=== PATIENT | female | born 1950 | race Caucasian/White ===

== ENCOUNTER 2017-02-10 10:21 | Day surgery (SDC) | payer MEDICARE, BC, OTHER ==
[~2017-02-10] VITALS: Ht 162.6 cm; Wt 85.3 kg
[2017-02-10] MEDS ORDERED: OMEP40CA2 PO (10:33)
[2017-02-10] MEDS ORDERED: CALC600T60 PO (10:33)
[2017-02-10] MEDS ORDERED: LOSA50TA20 PO (10:33)
[2017-02-10] MEDS ORDERED: POTA99TA PO (10:33)
[2017-02-10] MEDS ORDERED: CARI350T PO (10:33)
[2017-02-10] MEDS ORDERED: MIRA33504 PO (10:33)
[2017-02-10] MEDS ORDERED: TRAM1CAP15 PO (10:33)
[2017-02-10] MEDS ORDERED: GABA-283 PO (10:33)
[2017-02-10] MEDS ORDERED: AMIT10TA PO (10:33)
[2017-02-10] MEDS ORDERED: VITA250L PO (10:33)
[2017-02-10] MEDS ORDERED: NAPR220C PO (10:33)
[2017-02-10] MEDS ORDERED: ACETAMINOPHEN TAB 650MG DOSE (2X325MG) PO ONE (11:00)
--- NOTE | 2017-02-10 11:16 | REP ---
Left ankle four views: There is a spiral fracture of the distal fibular shaft. There is a transverse fracture at the base of the medial malleolus. The posterior malleolus is unremarkable. The mortise appears symmetric. Talar dome is unremarkable. There are calcaneal plantar and Achilles spurs. Spurs. Impression: Bimalleolar fracture. The mortise is symmetric. Signed by Wayne Gregory MD 02/10/2017 11:07 A
[2017-02-10] MEDS ORDERED: GABA600T PO (13:49)
[2017-02-10] MEDS ORDERED: VITA500T53 PO (13:49)
[2017-02-10] MEDS ORDERED: CALC600T57 PO (13:49)
[2017-02-10] MEDS ORDERED: GABA-282 PO (13:49)
[2017-02-10] MEDS ORDERED: NAPR1TAB86 PO (13:54)
[2017-02-10] MEDS ORDERED: VITA200038 PO (13:54)
[2017-02-10] MEDS ORDERED: OMEP20CA3 PO (13:54)
[2017-02-10] MEDS ORDERED: TRAM50TA2 PO (13:54)
[2017-02-10] MEDS ORDERED: HYDR12.55 PO (13:54)
[2017-02-10] MEDS ORDERED: PROL60SO SC (13:54)
[2017-02-10] MEDS ORDERED: STOO100C PO (13:54)
--- NOTE | 2017-02-10 15:18 | HPE ---
DATE OF ADMISSION: 02/10/2017 CHIEF COMPLAINT: Left ankle fracture. HISTORY OF PRESENT ILLNESS: Priya Kendall is a 66-year-old female with a history of mild chronic progressive amyotrophic lateral sclerosis who ambulates with a walker in the household at baseline, who sustained a mechanical fall from standing height, resulting in a left bimalleolar ankle fracture. She presented to the emergency department for evaluation. She denies any numbness, tingling, or burning sensations distally about her left lower extremity and has no other symptoms. Localizes pain to the left ankle. PAST MEDICAL HISTORY: Significant for: 1. Mild amyotrophic lateral sclerosis (ALS) per history of present illness (HPI). 2. Hypertension. 3. Gastroesophageal reflux disease (GERD). 4. Prediabetes. MEDICATIONS: - gabapentin 600 mg by mouth every morning, 900 mg by mouth at bedtime - amitriptyline 20 mg by mouth at bedtime - Naprosyn 500 mg by mouth twice a day - tramadol 50 mg by mouth three times a day - omeprazole 20 mg by mouth daily - losartan 50 mg by mouth at bedtime ALLERGIES: CODEINE, causing rash. PAST SURGICAL HISTORY: 1. Right knee arthroscopies in 1995 and 2012. 2. Ovarian cyst removal. 3. Vertebroplasty. SOCIAL HISTORY: Patient is a retired assistant corporate secretary. She currently lives with her brother and his . She does not smoke, drink, or use illicit drugs. REVIEW OF SYSTEMS: A 14-point review of systems was reviewed and remarkable for a history of neurologic disease per HPI and spinal stenosis. Otherwise unremarkable. PHYSICAL EXAMINATION: VITAL SIGNS: Reviewed and stable. GENERAL: This is a well-nourished female who appears stated age. No acute distress. NEUROLOGIC: She is awake, alert, oriented to person, place, and time. She has mild tongue fasciculations with no deviation. She has 5/5 motor strength, upper extremity, C5-T1 distributions. She has 4/5 motor strength in her hip flexors, quadriceps, hamstrings, ankle plantiflexors, dorsiflexors, inversion, and eversion. She has intact sensation to light tough in all left lower extremity distributions. CARDIOVASCULAR: She has 2+ dorsalis pedis (DP) and posterior tibialis (PT) pulse and brisk capillary refill at all digits of the left lower extremity. MUSCULOSKELETAL: Focused physical exam of the left ankle demonstrates no open wounds or abrasions. There is mild soft tissue swelling with left ankle. There is mild visible deformity about the left ankle. She is able to actively flex and extend all toes and dorsiflex, plantarflex, invert, and tiffany her left ankle. RADIOGRAPHS: Plain radiographs of the left ankle demonstrate a displaced bimalleolar ankle fracture with evidence of disuse osteopenia. ASSESSMENT: This is a 66-year-old female with mild progressive neurologic motor disease who has a left bimalleolar ankle fracture. PLAN: I had a very long discussion with the patient regarding the risks, benefits, indications, and alternatives of surgical versus nonsurgical treatment for her bimalleolar ankle fracture. Given that she ambulates only small distances in her house, and her life expectancy per patient's neurologist is around 5 years, I counseled the patient that posttraumatic arthritis is unlikely to be a significant contributing factor. If she developed a malunion however, she will likely require an extended period of casting to have the ankle heal, which may make hygiene and transfers more difficult, given that she is cared for by her brother and [id number]. It may also aid in her short-distance ambulation to have rigid internal fixation of her left ankle. After a discussion of the risks, benefits, indications, and alternative of surgical and nonsurgical treatment, the patient has elected to proceed with left ankle open reduction, internal fixation. I also counseled the patient that I will be her operation surgeon, but her followup will consulted by the [facility]. The patient expressed understanding of this arrangement, and informed consent was obtained for left ankle open reduction, internal fixation (ORIF). We will proceed to the operating room later today when her NPO time allows and will likely discharge in the morning. STEPHAN
[2017-02-10] MEDS ORDERED: LIDOCAINE 2% INJ 100 MG/5 ML SDV (FOR ANES.) As Ordered ONE (16:46)
[2017-02-10] MEDS ORDERED: PROPOFOL 200 MG/20 ML VIAL As Ordered ONE (16:46)
[2017-02-10] MEDS ORDERED: MIDAZOLAM INJ 2 MG/2 ML VIAL (J2250) As Ordered ONE (16:47)
[2017-02-10] MEDS ORDERED: fentaNYL 100 MCG/2 ML INJECTION (J3010) As Ordered ONE ×2 (16:47→18:50)
[2017-02-10] MEDS ORDERED: ceFAZolin 2 GM/D5W 50 ML IV BAG (J0690) As Ordered ONE (17:06)
[2017-02-10] MEDS ORDERED: BUPIVACAINE/EPIN 0.5% 30 ML VIAL As Ordered ONE (17:12)
[2017-02-10] MEDS ORDERED: PHENYLephrine HCL 500 MCG/5 ML (100MCG/ML) SYRINGE (J2370) As Ordered ONE ×2 (17:29→18:04)
[2017-02-10] MEDS ORDERED: MORPHINE 10 MG/ML 1ML VIAL As Ordered ONE (17:37)
[2017-02-10] MEDS ORDERED: ONDANSETRON 4MG/2ML VIAL (J2405) As Ordered ONE (17:39)
[2017-02-10] MEDS ORDERED: ePHEDrine SULFATE 25 MG/5 ML(5MG/ML) SYRINGE As Ordered ONE ×2 (17:51→18:05)
[2017-02-10] MEDS ORDERED: LR 1,000 ML IV SCH (19:15)
[2017-02-10] MEDS ORDERED: NORCO, ANEXSIA 5/325MG TABLET (HYDROcodone/ACETAMINOPHEN) PO PRN (19:15)
[2017-02-10] MEDS ORDERED: ONDANSETRON 4MG/2ML VIAL (J2405) IV PRN (19:15)
[2017-02-10] MEDS ORDERED: fentaNYL 100 MCG/2 ML INJECTION (J3010) IV PRN (19:15)
[2017-02-10] MEDS ORDERED: oxyCODONE 5MG TAB PO PRN (19:30)
[2017-02-10 19:45] VITALS: BP 125/61
[2017-02-10 20:15] VITALS: BP 137/65
[2017-02-10] MEDS: LOSARTAN 50 MG TAB PO SCH (21:05)
[2017-02-10] MEDS: GABAPENTIN 300 MG CAP PO SCH (21:05)
[2017-02-10] MEDS: traMADol 50 MG TAB PO PRN (21:06)
[2017-02-10 21:15] VITALS: BP 141/63
[2017-02-10] MEDS: NAPROXEN 250 MG TAB PO SCH (21:38)
[2017-02-10 22:15] VITALS: BP 146/82
[2017-02-10 23:15] VITALS: BP 142/80
[2017-02-11 02:00] VITALS: BP 138/72
[2017-02-11 06:00] VITALS: BP 101/54
[2017-02-11] MEDS: GABAPENTIN 300 MG CAP PO SCH ×2 (08:50→20:28)
[2017-02-11] MEDS: ASPIRIN 325 MG TAB PO SCH (08:50)
[2017-02-11] MEDS: NAPROXEN 250 MG TAB PO SCH ×2 (08:50→20:31)
[2017-02-11] MEDS: traMADol 50 MG TAB PO PRN ×2 (08:54→20:29)
--- NOTE | 2017-02-11 09:00 | REP ---
Left ankle intraoperative fluoroscopic views: There is a compression plate stabilizing a fracture of the distal fibula in satisfactory position alignment. There are orthopedic screws stabilizing the medial malleolus in satisfactory position alignment. The mortise is symmetric. Posterior malleolus is unremarkable. Fluoroscopic poor exposure time is 46 seconds. Fluoroscopic images are performed with last image hold technology. These images require no additional radiation. Signed by Wayne Gregory MD 02/11/2017 08:51 A
--- NOTE | 2017-02-11 09:02 | REP ---
Left ankle three views postoperative study: There is a compression plate stabilizing the fracture of the distal fibula in satisfactory position alignment. There are two of orthopedic screw stabilizing the medial malleolus in satisfactory position alignment. The mortise is symmetric. Posterior malleolus is unremarkable. There are a calcaneal plantar and Achilles spurs. There is a plaster cast. Signed by Wayne Gregory MD 02/11/2017 08:52 A
[2017-02-11] MEDS ORDERED: traMADol 50 MG TAB PO ONE (11:00)
--- NOTE | 2017-02-11 14:48 | RO ---
DATE OF PROCEDURE: 02/10/2017 PREPROCEDURE DIAGNOSIS: Left ankle fracture. POSTPROCEDURE DIAGNOSIS: Left ankle fracture. OPERATIVE PROCEDURE: Left ankle open reduction, internal fixation (ORIF) with bimalleolar ankle fracture. SURGEON: Casimiro Fonseca MD ROOFING APPRENTICE: LAST Rangel ANESTHESIA PROVIDER: Dr. Keenan. ANTIBIOTICS: 2 gram Ancef given within one hour of incision. TOTAL TOURNIQUET TIME: 65 minutes, 250 mmHg, left thigh. IMPLANTS USED: Synthes 7-hole 2.7/3.5 mm distal fibular locking plate with four 12 mm x 3.5 mm locking screws. One 16 mm x 2.7 mm locking screw, two 14 mm x 2.7 mm locking screws, two 12 mm x 2.7 mm locking screws, one 46 mm x 4 mm partially threaded cannulated cancellus screw, and one 50 mm x 4 mm partially threaded cannulated cancellus screw. MATERIAL SENT TO THE LAB: None. COMPLICATIONS: None. INDICATION FOR PROCEDURE: Priya Kendall is a 66-year-old female with history of mild version of amyotrophic lateral sclerosis (ALS) where she has baseline weakness in her lower extremities. She ambulates in the household only with a walker. 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 Given her limited mobility I had a long discussion with the patient regarding the risks, benefits, indications and alternatives of operative and nonoperative treatment for her left bimalleolar ankle fracture. After discussion, we decided that operative treatment may allow for some earlier range of motion and may ease personal hygiene and transfers for her and her brother who is her caregiver. This patient provided informed consent for left ankle open reduction, internal fixation. I also counseled the patient that I will be her operating surgeon, but her followup will be conducted by [facility]. The patient expressed understanding with this arrangement and elected to proceed. INTRAOPERATIVE FINDINGS: There was significant comminution in the anterior aspect of the fibular fracture, therefore, a bridge-plating technique was used for the fibula. The syndesmosis was stable after fixation of the bimalleolar fracture. DESCRIPTION OF PROCEDURE: The patient was positively identified in the preop holding area where the surgical was marked. She was brought to the operating room where she was placed under laryngeal mask airway (LMA) anesthesia. Sequential compression device (SCD) was placed on the nonoperative lower extremity for deep venous thrombosis (DVT) prophylaxis. She was prepped and draped in the usual sterile fashion. A final time out was performed. I made a 12 cm incision directly lateral over the fibula. I dissected through skin and subcutaneous tissue. The superficial peroneal nerve was identified at the very proximal portion of the wound, which was out of the field. It was retracted anteriorly and protected throughout the remainder of the case. I then dissected down onto the fracture site, identified the fibular fracture and anterior comminution. At this point, I determined that a bridge-plating technique would be most appropriate for this fracture pattern. I then placed the distal fibular locking plate on the lateral malleolus using fluoroscopic guidance and then I used the plate as a reduction tool to obtain adequate length and rotation of the distal fibula. There was a small spike of bone posteriorly that allowed for adequate read on length. After obtaining adequate length, I placed a serrated clamp on the proximal portion of the fibula and the plate to hold it in place and then placed a single 3.5 mm cortex screw to hold the plate in place. I obtained fluoroscopic images to confirm adequate placement on AP and lateral and then proceeded to sequentially place 2.7 mm locking screws in the distal portion of the plate followed by four 3.5 mm locking screws in the proximal portion of the plate. Cortical screws were switched out for locking screws and then took fluoroscopic images to confirm adequate hardware placement and reduction of the fibula. I then turned my attention to the medial malleolus. A 3 cm incision was made centered over the medial malleolus and dissected through skin and subcutaneous tissue and identified the medial malleolar fracture. There was some periosteum interposed which was excised. The fracture was irrigated. I visualized the ankle joint. There were no loose bodies in the ankle joint. I then obtained an open reduction using dental pick tool of the medial malleolus. I placed two K-wires for the cannulated screws. I confirmed on fluoroscopy that there was adequate placement of the wires. I measured them and sequentially placed the anterior and posterior 4 mm cannulated screws. I confirmed on lateral and mortise images that there was no intraarticular penetration of the medial malleolar screws. I then performed a cotton test to evaluate the stability of the syndesmosis. It was noted to be stable. At this point, the wounds were then irrigated with normal saline and closed in layers. The fibular wound was closed with running #0 Vicryl for the periosteal layer, interrupted #2-0 Vicryl for the subcutaneous layer and a running #3-0 nylon for the skin. The medial side of the wound was closed with interrupted #2-0 Vicryl suture for the subcutaneous layer and interrupted #3-0 nylon horizontal fashion for the skin. Sterile dressings were applied. The tourniquet was let down, a total of 75 minutes. This ended the procedure. I was present and scrubbed in for all critical portions of the case. POSTOPERATIVE PLAN: The patient will be placed in a well-padded L and U splint. She will be nonweightbearing. She will be admitted to the hospital overnight for observation, elevation and pain control and likely be discharged to home tomorrow morning. STEPHAN
--- NOTE | 2017-02-11 19:26 | ECGEPIP ---
Stationary ECG Study [facility] - ED Test Date: 2017-02-10 Pat Name: ELICEO MATHEW Department: Room: - Gender: F Automotive Porter: bautista : 1950 Requested By: Arvind Javier Order Number: [id number] Reading MD: Marielena Coleman Measurements Intervals [place] Rate: 68 P: -1 UT: 194 QRS: 1 QRSD: 87 T: 7 QT: 365 QTc: 389 Interpretive Statements SINUS RHYTHM NONSPECIFIC T-WAVE ABNORMALITY INFERIOR INFARCT, ?AGE NO PRIOR FOR COMPARISON Electronically Signed On 02-11-2017 19:25:54 EDT by Marielena Coleman
[2017-02-11 20:28] VITALS: BP 150/85
[2017-02-11] MEDS: LOSARTAN 50 MG TAB PO SCH (20:28)
[2017-02-11 22:00] VITALS: BP 150/85
[2017-02-12] MEDS: traMADol 50 MG TAB PO PRN (05:39)
[2017-02-12 06:00] VITALS: BP 103/61
[2017-02-12] MEDS: GABAPENTIN 300 MG CAP PO SCH (08:07)
[2017-02-12] MEDS: ASPIRIN 325 MG TAB PO SCH (08:07)
[2017-02-12] MEDS: NAPROXEN 250 MG TAB PO SCH (08:08)
[2017-02-12] MEDS ORDERED: TRAM50TA2 PO (08:14)
[2017-02-12] MEDS ORDERED: ASPI325T PO (08:14)
== END 2017-02-12 11:20 | disposition home or self-care (01) ==
LOC: M ED 10:40 → M SDC 13:30 → M MS5PR 19:40 → M SDC 02-12 11:20
PROVIDERS: ATTEND Orthopaedic Surgery
DX: S82.842A Displaced bimalleolar fracture of left lower leg, initial encounter for closed fracture (principal); M85.872 Other specified disorders of bone density and structure, left ankle and foot; W19.XXXA Unspecified fall, initial encounter; Y92.009 Unspecified place in unspecified non-institutional (private) residence as the place of occurrence of the external cause; Y93.01 Activity, walking, marching and hiking; Y99.8 Other external cause status; G12.21 Amyotrophic lateral sclerosis; I10 Essential (primary) hypertension; K21.9 Gastro-esophageal reflux disease without esophagitis; R73.03 Prediabetes; M48.00 Spinal stenosis, site unspecified; Z79.899 Other long term (current) drug therapy; Z79.1 Long term (current) use of non-steroidal anti-inflammatories (NSAID); Z79.891 Long term (current) use of opiate analgesic; Z88.5 Allergy status to narcotic agent
CPT/HCPCS: 27814; 73610; 93005; 97162; 97530; 99284; C1776; G8981; G8982; G8983; J0690; J2250; J2370; J2405; J3010

== ENCOUNTER → 2017-03-23 | Outpatient (REF) | payer MEDICARE, OTHER ==
[~2017-03-23] MED LIST: AMIT10TA PO; ASPI325T PO; CALC600T57 PO; CALC600T60 PO; CARI350T PO; GABA-282 PO; GABA-283 PO; GABA600T PO; HYDR12.55 PO; LOSA50TA20 PO; MIRA33504 PO; NAPR1TAB86 PO; NAPR220C PO; OMEP20CA3 PO; OMEP40CA2 PO; POTA99TA PO; PROL60SO SC; STOO100C PO; TRAM1CAP15 PO; TRAM50TA2 PO; VITA200038 PO; VITA250L PO; VITA500T53 PO
== END ==
LOC: M LAB REF 13:16
PROVIDERS: ATTEND Internal Medicine
DX: N39.0 Urinary tract infection, site not specified (principal)

== ENCOUNTER → 2017-04-03 | Outpatient (REF) | payer MEDICARE, OTHER | LOC: M LAB REF 16:17 | PROVIDERS: ATTEND Internal Medicine | DX: N76.0 Acute vaginitis (principal) ==

== ENCOUNTER → 2017-07-16 | Outpatient (CLI) | payer MEDICARE, BC, OTHER ==
[2017-07-16 10:48] LABS: ALBUMIN/GLOBULIN RATIO 1.29 (1.00-1.93); ALKALINE PHOSPHATASE 70 U/L (45-117); ALT/SGPT 22 U/L (12-78); ANION GAP 6 MEQ/L (8-16); AST/SGOT 10 U/L (7-37); BILIRUBIN,TOTAL 0.7 MG/DL (0.2-1.0); BLOOD UREA NITROGEN 14 MG/DL (7-18); CALCIUM LEVEL 9.4 MG/DL (8.8-10.2); CARBON DIOXIDE LEVEL 33 MEQ/L (21-32); CHLORIDE LEVEL 101 MEQ/L (98-107); CREATININE FOR GFR 0.66 MG/DL (0.55-1.02); GLOMERULAR FILTRATION RATE > 60.0 (>45); GLUCOSE, FASTING 173 MG/DL (80-110); SODIUM LEVEL 140 MEQ/L (136-145); TOTAL PROTEIN 7.1 GM/DL (6.4-8.2)
== END ==
LOC: M LAB 09:40
PROVIDERS: ATTEND Urology Pediatric Urology
DX: G12.21 Amyotrophic lateral sclerosis (principal)

== ENCOUNTER → 2017-07-17 | Outpatient (CLI) | payer MEDICARE, BC, OTHER ==
[~2017-07-17] MED LIST changes: +PROHANCE 279.3MG/ML 15ML VIAL (A9576) As Ordered ONE
--- NOTE | 2017-07-17 13:07 | REP ---
MR BRAIN WITHOUT AND WITH CONTRAST: HISTORY: ALS. CONTRAST: ProHance 14 mL. Several punctate areas of increased signal intensity on T2-weighted images are present in the subcortical white matter. This represents small vessel ischemic disease. There is no intraparenchymal hemorrhage, infarct, mass or midline shift. There is no abnormal enhancement. The ventricular system and cortical sulci are dilated consistent with minimal volume loss. There is no extracerebral collection. The sinuses are clear. IMPRESSION: 1. Minimal small vessel ischemic disease. 2. Minimal volume loss. Signed by Andreas Tom MD 07/17/2017 01:15 P
== END ==
LOC: M RAD 09:42
PROVIDERS: ATTEND Psychiatry & Neurology Neurology
DX: G12.21 Amyotrophic lateral sclerosis (principal)
CPT/HCPCS: 70553; A9576

== ENCOUNTER 2019-04-03 18:18 | Inpatient (IN) | payer MEDICARE, BC, OTHER ==
[~2019-04-03] VITALS: Ht 162.6 cm; Wt 91.3 kg
[~2019-04-03 18:18] MED LIST changes: +ASPI-1 PO; -ASPI325T PO; +CARI1TAB7 PO; -CARI350T PO; -GABA-282 PO; -GABA-283 PO; +GABA-843 PO; +GABA-845 PO; -GABA600T PO; +GABA600T4 PO; -LOSA50TA20 PO; +LOSA50TA88 PO; +MM S100C PO; -OMEP20CA3 PO; +OMEP20CA4 PO; -PROHANCE 279.3MG/ML 15ML VIAL (A9576) As Ordered ONE; -STOO100C PO; +VITA500T17 PO; -VITA500T53 PO
[2019-04-03] MEDS ORDERED: GLIP5TAB20 PO (18:30)
[2019-04-03] MEDS ORDERED: METF500T4 PO (18:30)
--- NOTE | 2019-04-03 19:46 | REPVR ---
EXAM: CT Head Without Contrast EXAM DATE/TIME: 04/03/2019 7:38 PM CLINICAL HISTORY: 68 years old, female; Visual disturbance; Additional info: Visual changes, HTN TECHNIQUE: Imaging protocol: Computed tomography images of the head without contrast. Radiation optimization: All CT scans at this facility use at least one of these dose optimization techniques: automated exposure control; mA and/or kV adjustment per patient size (includes targeted exams where dose is matched to clinical indication); or iterative reconstruction. Other technique: STROKE PROTOCOL was implemented. COMPARISON: No relevant prior studies available. FINDINGS: Brain: No intracranial hemorrhage. No evidence of acute infarction. Mild diffuse cortical volume loss. Patchy white matter hypodensities consistent with chronic small vessel ischemic changes. Ventricles: No hydrocephalus. Bones/joints: Unremarkable. No acute fracture. Sinuses: Visualized sinuses are unremarkable. No fluid levels. Mastoid air cells: No mastoid effusion. Soft tissues: Unremarkable. IMPRESSION: 1. No acute intracranial abnormality. 2. Nonacute/incidental findings above. ASSESSMENT: [facility] Stroke Program Early CT Score (ASPECTS) = 10. Electronically signed by: Germain Linares On 04/03/2019 19:46:17 PM
[2019-04-03] MEDS ORDERED: TROPICAMIDE 1% OPHTH SOLN 2ML OU ONE (20:45)
[2019-04-03] MEDS ORDERED: PHENYLEPHRINE 2.5% OPHTH SOL 2ML OU ONE (20:45)
[2019-04-03] MEDS: HumaLOG INSULIN (NovoLOG) PER UNIT SC SCH (21:00)
[2019-04-03 21:04] LABS: BASO # 0.1 10^3/uL (0.0-0.2); BASO % 0.6 % (0.0-1.0); EOS # 0.2 10^3/uL (0.0-0.50); HEMATOCRIT 39.3 % (36.0-47.0); HEMOGLOBIN 12.9 g/dl (12.0-15.5); LYMPH # 2.5 10^3/uL (1.5-4.5); LYMPH % 30.7 % (24.0-44.0); MEAN CORPUSCULAR HEMOGLOBIN 29.6 pg (27.0-33.0); MEAN CORPUSCULAR HGB CONC 32.8 g/dl (32.0-36.5); MEAN CORPUSCULAR VOLUME 90.1 fl (80.0-96.0); MONO # 0.6 10^3/uL (0.0-0.8); MONO % 7.6 % (0.0-5.0); NEUTROPHILS # 4.7 10^3/uL (1.8-7.7); NEUTROPHILS % 58.7 % (36.0-66.0); PLATELET COUNT, AUTOMATED 277 10^3/uL (150-450); RED BLOOD COUNT 4.36 10^6/uL (4.00-5.40); WHITE BLOOD COUNT 8.1 10^3/uL (4.0-10.0)
[2019-04-03 21:18] LABS: PROTHROMBIN TIME 12.9 SECONDS (11.8-14.0)
[2019-04-03 21:19] LABS: PARTIAL THROMBOPLASTIN TIME 25.9 SECONDS (25.0-38.4)
[2019-04-03 21:42] LABS: BLOOD UREA NITROGEN 13 MG/DL (7-18); CALCIUM LEVEL 9.1 MG/DL (8.8-10.2); CARBON DIOXIDE LEVEL 29 MEQ/L (21-32); CHLORIDE LEVEL 101 MEQ/L (98-107); CPK CREATINE PHOSPHOKINASE 130 U/L (26-192); CREATININE FOR GFR 1.02 MG/DL (0.55-1.30); GLUCOSE, FASTING 221 MG/DL (70-100); MB/CK RELATIVE INDEX 1.54 (< OR =4); SODIUM LEVEL 141 MEQ/L (136-145); TROPONIN I < 0.02 NG/ML (< 0.10)
[2019-04-03] MEDS ORDERED: LABETALOL HCL 100 MG/20 ML VIAL IV STA (21:56)
[2019-04-03] MEDS ORDERED: AMIT50TA PO (22:33)
[2019-04-03] MEDS ORDERED: HM V5000 PO (22:33)
[2019-04-03] MEDS ORDERED: GABA-843 PO (22:35)
[2019-04-03] MEDS ORDERED: CHLO25TA PO (22:39)
[2019-04-03] MEDS ORDERED: HYDR25TAB PO (22:39)
[2019-04-03] MEDS ORDERED: GLUCOSE 4 GM CHEW TABLET PO PRN (22:45)
[2019-04-03] MEDS ORDERED: MOM 30ML SUSPENSION UDC PO PRN (22:45)
[2019-04-03] MEDS ORDERED: GLUCAGON FOR INJ 1 MG VIAL (J1610) SC PRN (22:45)
[2019-04-03] MEDS ORDERED: DEXTROSE 50% 50 ML SYRINGE IV PRN (22:45)
[2019-04-03] MEDS ORDERED: MAALOX 30 ML SUSP *UDC PO PRN (22:45)
[2019-04-03] MEDS ORDERED: TRAM50TA2 PO ×2 (22:47)
[2019-04-03] MEDS ORDERED: POTA2.5T PO (22:47)
[2019-04-03] MEDS ORDERED: MAGN400T2 PO (22:47)
[2019-04-03] MEDS ORDERED: TRAM-533 PO (22:47)
[2019-04-03] MEDS ORDERED: traMADol 50 MG TAB PO PRN (23:15)
[2019-04-03] MEDS ORDERED: ASPIRIN 81 MG CHEW TABLET PO ONE (23:30)
[2019-04-03] MEDS ORDERED: ATORVASTATIN 20 MG TAB PO ONE (23:30)
--- NOTE | 2019-04-03 23:38 | HPEPDOC ---
General Date of Admission 04/03/19 Date of Service: Apr 03, 2019 Chief Complaint The patient is a 68-year-old female admitted with a reason for visit of Eye Problem. Source: Patient, Family, RN/MD Exam Limitations: No limitations Severity: Moderate History of Present Illness 68 year old female with PMH of ALS since 2014 wheel chair bound, diabetes, hypertension, Neuropathy, chronic pain and muscle spasms from ALS and neuropathy, restless legs present to the ED with sudden loss of vision in the left eye. pateint was transferring from wheel chair to bed today at 5 pm when she suddenly could not see in the upper part of the left visual field. SHe describes as if suddenly a white curtain came down covering left eye the upper p art of the visual field. She could see through the lower part. She immediately came to the ED and was seen by lead quality technician Dr Ho . 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 as per him nothing to be done for the eyes but she needs work up for TIA/Stroke. Pateint was admitted to the hospitalist service for TIA/ stroke. On my interview patient says that her vision is coming back she can partially see through the upper field. The complete loss of vision in that area lasted about 4.5 hours now mostly improved. She probably has a TIA affecting the inferior retinal artery. She did not have any associated heache or pain in the eyes. Home Medications Scheduled Amitriptyline HCl (Amitriptyline HCl) 50 Mg Tablet, 50 MG PO QHS, (Reported) Calcium Carbonate/Vitamin D3 (Calcium 600-Vit D3 200 Tablet) 1 Tab Tab, 1 TAB PO BID, (Reported) Chlorthalidone (Chlorthalidone) 25 Mg Tablet, 25 MG PO DAILY, (Reported) NEW RX, HAS NOT STARTED. WILL REPLACE HCTZ. Cholecalciferol (Vitamin D3) (Vitamin D3) 2,000 Unit Tab, 2,000 UNIT PO DAILY, (Reported) Cyanocobalamin (Vitamin B-12) (Vitamin B12) 5,000 Mcg Tab.rapdis, 5,000 MCG PO QHS, (Reported) Denosumab Injection (Prolia) 60 Mg/Ml Vijaya, 60 MG SC ASDIRECTED, (Reported) Gabapentin (Gabapentin) 300 Mg Cap, 300 MG PO QPM, (Reported) TAKES AT 1700 Gabapentin (Gabapentin) 300 Mg Capsule, 600 MG PO BID, (Reported) TAKES AT 0830 AND 2100 Glipizide (Glipizide ER) 5 Mg Tab.er.24, 5 MG PO DAILY, (Reported) Hydrochlorothiazide (Hydrochlorothiazide) 25 Mg Tablet, 25 MG PO DAILY, (Reported) Losartan Potassium (Losartan Potassium) 50 Mg Tab, 50 MG PO QHS, (Reported) Magnesium Oxide (Magnesium Oxide) 400 Mg Tablet, 400 MG PO DAILY, (Reported) Metformin HCl (Metformin HCl ER) 500 Mg Tab.er.24h, 500 MG PO BID, (Reported) TAKES AT 0830 AND 1700 Naproxen Sodium (Naproxen Sodium ER) 500 Mg Tab, 500 MG PO BID, (Reported) TAKES AT 0830 AND 1700 Omeprazole (Omeprazole) 20 Mg Cap, 20 MG PO DAILY, (Reported) Potassium Gluconate (Potassium Gluconate) 90 Mg Tablet, 99 MG PO DAILY, (Reported) Tramadol HCl (Tramadol HCl) 50 Mg Tablet, 50 MG PO BID, (Reported) TAKES AT 0830 AND 1700 Tramadol HCl (Tramadol Hydrochloride) 50 Mg Tablet, 100 MG PO QHS, (Reported) Scheduled PRN Docusate Sodium (Stool Softener) 100 Mg Cap, 100 MG PO QPM PRN for CONSTIPATION, (Reported) Tramadol HCl (Tramadol HCl) 50 Mg Tablet, 50 MG PO DAILY PRN for PAIN, (Reported) TAKES PRN AT 1200 Allergies Coded Allergies: codeine (Verified Allergy, Unknown, 04/03/19) Past Medical History Medical History ALS since 2014 wheel chair bound, diabetes, hypertension, Neuropathy, chronic pain and muscle spasms from ALS and neuropathy, restless legs Surgical History Left Ankle surgery for fibula and tibia fracture, Lasik for eyes, ovarian cyst surgery Family History Significant Family History: Diabetes (fathr), Hypertension (father) Social History * Smoker: Denies Alcohol: Denies Drugs: denies A-FIB/CHADSVASC A-FIB History Current/History of A-Fib/PAF?: No Review of Systems Constitutional: Denies: Chills, Fever, Night Sweats Eyes: Reports: Vision change (sudden loss of vision in the left eye upper viual field at 5 pm) ENT: Denies: Head Aches, Ear Pain, Dysphagia Skin: Denies: Rash, Lesions, Breakdown Pulmonary: Denies: Dyspnea, Cough Cardiovascular: Denies: Chest Pain, Palpitations, Orthopnea, Paroxysmal Noc. Dyspnea, Lt Headedness Gastrointestinal: Denies: Nausea, Vomiting, Abdominal Pain, Diarrhea Genitourinary: Denies: Dysuria, Frequency, Incontinence, Retention Musculoskeletal: Reports: Back Pain, Leg Pain, Muscle Pain, Spasms Neurological: Reports: Weakness (of both legs) Psych: Reports: Mood Normal; Denies: Depression, Memory Issues Physical Examination General Exam: Positive: Alert, Cooperative, No Acute Distress Eye Exam: Positive: Conjunctiva & lids normal, EOMI, Other Eye Symptoms (pupils dilated to 5 mm non reactive as just recieved dilators) ENT Exam: Positive: Atraumatic, Mucous membr. moist/pink, Pharynx Normal Neck Exam: Positive: Supple; Negative: JVD, thyromegaly Chest Exam: Positive: Clear to auscultation, Normal air movement Heart Exam: Positive: Rate Normal, Regular Rhythm, Normal S1, Normal S2; Negative: Murmurs, Rubs Telemetry: Positive: No significant arrhythmia Abdomen Exam: Positive: Normal bowel sounds, Soft; Negative: Tenderness, Hepatospenomegaly Extremity Exam: Positive: Edema, Other (erythema of the bottom of both feet and warmth.) Neuro Exam: Positive: Normal Speech, Other Psych Exam: Positive: Mental status NL, Mood NL, Oriented x 3 Vital Signs Vital Signs Date Time Temp Pulse Resp B/P (MAP) Pulse Ox O2 Delivery O2 Flow Rate FiO2 04/03/19 22:48 80 94 04/03/19 22:45 151/73 (99) 04/03/19 19:30 99.6 20 Room Air Laboratory Data Labs 24H Laboratory Tests 2 04/03/19 20:50: Bedside Glucose (Misc Panel) 226H 04/03/19 20:55: Immature Granulocyte % (Auto) 0.4, White Blood Count 8.1, Red Blood Count 4.36, Hemoglobin 12.9, Hematocrit 39.3, Mean Corpuscular Volume 90.1, Mean Corpuscular Hemoglobin 29.6, Mean Corpuscular Hemoglobin Concent 32.8, Red Cell Distribution Width 14.0, Platelet Count 277, Neutrophils (%) (Auto) 58.7, Lymphocytes (%) (Auto) 30.7, Monocytes (%) (Auto) 7.6H, Eosinophils (%) (Auto) 2.0, Basophils (%) (Auto) 0.6, Neutrophils # (Auto) 4.7, Lymphocytes # (Auto) 2.5, Monocytes # (Auto) 0.6, Eosinophils # (Auto) 0.2, Basophils # (Auto) 0.1, Nucleated Red Blood Cells % (auto) 0.0, Prothrombin Time 12.9, Prothromb Time International Ratio 1.00, Activated Partial Thromboplast Time 25.9, Anion Gap 11, Glomerular Filtration Rate 57.0, Blood Urea Nitrogen 13, Creatinine 1.02, Sodium Level 141, Potassium Level 4.0, Chloride Level 101, Carbon Dioxide Level 29, Calcium Level 9.1, Total Creatine Kinase 130, Creatine Kinase MB 2.0, Creatine Kinase MB Relative Index 1.54, Troponin I < 0.02 CBC/BMP Laboratory Tests 04/03/19 20:55 Red Blood Count 4.36, Mean Corpuscular Volume 90.1, Mean Corpuscular Hemoglobin 29.6, Mean Corpuscular Hemoglobin Concent 32.8, Red Cell Distribution Width 14.0, Neutrophils (%) (Auto) 58.7, Lymphocytes (%) (Auto) 30.7, Monocytes (%) (Auto) 7.6 H, Eosinophils (%) (Auto) 2.0, Basophils (%) (Auto) 0.6, Neutrophils # (Auto) 4.7, Lymphocytes # (Auto) 2.5, Monocytes # (Auto) 0.6, Eosinophils # (Auto) 0.2, Basophils # (Auto) 0.1, Calcium Level 9.1, Total Creatine Kinase 130 Assessment/Plan 68 year old female with PMH of ALS since 2014 wheel chair bound, diabetes, hypertension, Neuropathy, chronic pain and muscle spasms from ALS and neuropathy, restless legs present to the ED with sudden loss of vision in the left eye. pateint was transferring from wheel chair to bed today at 5 pm when s he suddenly could not see in the upper part of the left visual field. SHe describes as if suddenly a white curtain came down covering left eye the upper part of the visual field. She could see through the lower part. She immediately came to the ED and was seen by lead quality technician Dr Ho . 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 as per him nothing to be done for the eyes but she needs work up for TIA/Stroke. Pateint was admitted to the hospitalist service for TIA/ stroke. TIA/Stroke Probably Embolic in nature in the left inferior retinal artery distribution area vision is still improving. CT head negative. will get MRI and MRA of brain, Carotid US, Echo. admit to Telemetry for any cardiac arrhythmia Allow. permissive hypertension with SBp in 150 to 160 range Diabetes with neuropathy will hold metformin, continue glipizide will add lispro AC and HS as per sliding scale continue elavil, gabapentin, tramadol Hypertension continue losartan and diuretics as needed Bipedal edema with erythema of the bottom of the feet as per her they get cyanotic when they are hanging down for a while probably has venous insufficiency and problem with venous return. May also have underlying PAD. consider consulting vascular ALS with Paraplegia chronic pain and muscle spasms. continue elavil, tramadol, gabapentin WC bound. Plan / VTE VTE Prophylaxis Ordered?: Yes LUIS CURRAN MD Apr 03, 2019 23:38
[2019-04-04] VITALS (9 sets, daily range): BP systolic 121–152; BP diastolic 63–93
--- NOTE | 2019-04-04 00:40 | REPVR ---
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 ; Additional Info: acute stroke TECHNIQUE: Imaging protocol: MR angiogram head without contrast. Exam focused on the arteries. 3D rendering: MIP reconstructed images were created and reviewed. COMPARISON: CT Head Stroke Protocol 04/03/2019 7:36 PM FINDINGS: Right internal carotid artery: Unremarkable. Intracranial segment is patent with no significant stenosis. No aneurysm. Right anterior cerebral artery: Unremarkable. No occlusion or significant stenosis. No aneurysm. Right middle cerebral artery: Unremarkable. No occlusion or significant stenosis. No aneurysm. Right posterior cerebral artery: Unremarkable. No occlusion or significant stenosis. No aneurysm. Right vertebral artery: Right vertebral artery is hypoplastic. Left internal carotid artery: Unremarkable. Intracranial segment is patent with no significant stenosis. No aneurysm. Left anterior cerebral artery: Unremarkable. No occlusion or significant stenosis. No aneurysm. Left middle cerebral artery: Unremarkable. No occlusion or significant stenosis. No aneurysm. Left posterior cerebral artery: Unremarkable. No occlusion or significant stenosis. No aneurysm. Left vertebral artery: Unremarkable. No occlusion or significant stenosis. No aneurysm. Basilar artery: Unremarkable. No occlusion or significant stenosis. No aneurysm. IMPRESSION: No large vessel arterial occlusion. Electronically signed by: Clinton Hobson On 04/04/2019 00:40:20 AM
--- NOTE | 2019-04-04 00:41 | REPVR ---
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 ; Additional Info: acute stroke TECHNIQUE: Imaging protocol: MR of the head without contrast. COMPARISON: CT Head Stroke Protocol 04/03/2019 7:36 PM FINDINGS: Brain: No acute infarct. There are no abnormal white matter changes. Diffuse cerebral atrophy consistent with patient's age. No acute edema. No acute intracranial hemorrhage. Ventricles: Ventricles are in proportion to the degree of atrophy. Bones/joints: Unremarkable. Soft tissues: Normal. Sinuses: Normal as visualized. No acute sinusitis. Mastoid air cells: Normal as visualized. No mastoid effusion. Orbits: Unremarkable. Other vasculature: Right vertebral artery is hypoplastic. Expected flow voids in the cerebral arteries otherwise. IMPRESSION: No acute infarct. Electronically signed by: Clinton Hobson On 04/04/2019 00:40:37 AM
--- NOTE | 2019-04-04 00:44 | REPVR ---
EXAM: US Duplex Bilateral Extracranial Arteries EXAM DATE/TIME: 04/03/2019 11:25 PM CLINICAL HISTORY: 68 years old, female; Dizziness; Additional Info: stroke TECHNIQUE: Imaging protocol: Real-time Duplex ultrasound scan of the Bilateral carotid and vertebral arteries combining alvarez scale, color Doppler and spectral waveform analysis. COMPARISON: CT Head Stroke Protocol 04/03/2019 7:36 PM FINDINGS: Right common carotid artery: Unremarkable. No occlusion or stenosis. Waveforms are normal. Peak systolic velocity is 95 cm/s. Right internal carotid artery: Unremarkable. No occlusion or stenosis. Waveforms are normal. Peak systolic velocity is 79 cm/s. Moderate echogenic plaque in the right carotid bulb. Right ICA/CCA ratio: Within normal limits. Ratio is 0.83. Right external carotid artery: No stenosis in the origin. Right vertebral artery: Unremarkable. Antegrade flow Left common carotid artery: Unremarkable. No occlusion or stenosis. Waveforms are normal. Peak systolic velocity is 125 cm/s. Left internal carotid artery: Unremarkable. No occlusion or stenosis. Waveforms are normal. The systolic velocity is 74 cm/s. Mild plaque in the right carotid bulb. Left ICA/CCA ratio: Within normal limits. Ratio is 0.60. Left external carotid artery: No stenosis in the origin. Left vertebral artery: Left vertebral artery is not seen. IMPRESSION: 1. No carotid artery stenosis. 2. Left vertebral artery is not seen. COMMENT: Carotid Stenosis Reference using SRU criteria: Mild: less than 50% stenosis. ICA PSV is less than 125 cm/second and plaque or intimal thickening is visible. Moderate: 50-69% stenosis. ICA PSV is 125 to 230 cm/second and plaque is visible. Severe: 70-94% stenosis. ICA PSV is more than 230 cm/second and visible plaque and lumen narrowing are seen. Near occlusion: 95-99% stenosis. ICA PSV is variable and significant plaque and luminal narrowing are seen. Occluded: 100% stenosis. No flow identified. Electronically signed by: Clinton Hobson On 04/04/2019 00:43:44 AM
[2019-04-04] MEDS: DOCUSATE SODIUM 100 MG CAP PO SCH ×3 (02:30→21:25)
[2019-04-04] MEDS: LOSARTAN 50 MG TAB PO SCH ×2 (02:31→21:00)
[2019-04-04] MEDS: traMADol 50 MG TAB PO SCH ×4 (02:32→21:24)
[2019-04-04 05:49] LABS: BASO # 0.1 10^3/uL (0.0-0.2); BASO % 0.6 % (0.0-1.0); EOS # 0.2 10^3/uL (0.0-0.50); EOS % 1.9 % (0.0-3.0); HEMATOCRIT 35.1 % (36.0-47.0); HEMOGLOBIN 11.5 g/dl (12.0-15.5); LYMPH # 3.3 10^3/uL (1.5-4.5); LYMPH % 41.1 % (24.0-44.0); MEAN CORPUSCULAR HEMOGLOBIN 29.5 pg (27.0-33.0); MEAN CORPUSCULAR HGB CONC 32.8 g/dl (32.0-36.5); MONO # 0.6 10^3/uL (0.0-0.8); MONO % 7.6 % (0.0-5.0); NEUTROPHILS # 3.9 10^3/uL (1.8-7.7); NEUTROPHILS % 48.5 % (36.0-66.0); PLATELET COUNT, AUTOMATED 241 10^3/uL (150-450)
[2019-04-04 06:12] LABS: BLOOD UREA NITROGEN 17 MG/DL (7-18); CALCIUM LEVEL 8.6 MG/DL (8.8-10.2); CARBON DIOXIDE LEVEL 29 MEQ/L (21-32); CHLORIDE LEVEL 102 MEQ/L (98-107); CREATININE FOR GFR 0.84 MG/DL (0.55-1.30); GLOMERULAR FILTRATION RATE > 60.0 (>39); GLUCOSE, FASTING 123 MG/DL (70-100); POTASSIUM SERUM 3.6 MEQ/L (3.5-5.1); SODIUM LEVEL 141 MEQ/L (136-145)
--- NOTE | 2019-04-04 07:50 | REP ---
Clinical: Acute cerebrovascular accident . Comparison: None . Findings: The mediastinum and cardiac silhouette are stable and within normal limits for portable technique. The lung vasquez are clear without acute consolidation, effusion, or pneumothorax. Skeletal structures are intact. Impression: No acute cardiopulmonary process appreciated. Electronically Signed by Cachorro Jiang MD 04/04/2019 07:42 A
[2019-04-04] MEDS: ENOXAPARIN 40 MG/0.4 ML SYRINGE (J1650) SC SCH (08:30)
[2019-04-04] MEDS: HumaLOG INSULIN (NovoLOG) PER UNIT SC SCH ×4 (08:30→20:15)
[2019-04-04] MEDS: MAGNESIUM OXIDE 400 MG TAB (MAG-OX) PO SCH (08:30)
[2019-04-04] MEDS: glipiZIDE XL 5 MG TABCR PO SCH (08:30)
[2019-04-04] MEDS: OMEPRAZOLE 20 MG CAP PO SCH (08:30)
[2019-04-04] MEDS: CHLORTHALIDONE 25 MG TAB PO SCH (08:31)
[2019-04-04] MEDS: GABAPENTIN 300 MG CAP PO SCH ×2 (08:31→21:25)
[2019-04-04] MEDS ORDERED: ASPIRIN 81 MG ENTERIC TAB PO SCH (09:00)
--- NOTE | 2019-04-04 10:34 | IPNPDOC ---
Text Note Date of Service The patient was seen on 04/04/19. NOTE S: patient states vision returned to normal 4 hours after being seen in ED. Has had no further "curtain closing" and vision loss. States over past 1 week, increased leg edema and PCP changed HCTZ to chloridone diuretic. 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 States leg edema is dependent, worse with sitting in wheelchair all day, resolves with bedrests, except over past week ahs been persistent day/night edema She states no JOYCE, no CP, no SOB O: Vitals as below General: pleasant, NAD. AAOx3 HRRR soft EDY LCTA no W/R/R Abdomen soft NT ND NABS Ext: 2+ pitting edema bilaterally (SANDEEP kong intacct A/P: Right retinal artery occlusion MRI/MRA brain and neck negative ECHO pending Continue with ASA / statin and will need to follow up with her neurologist in [facility] Will need follow up with retinal doctor TIA/Stroke - Probably Embolic in nature in the left inferior retinal artery distribution area Allow. permissive hypertension with SBp in 150 to 160 range Diabetes with neuropathy - will hold metformin, continue glipizide will add lispro AC and HS as per sliding scale continue elavil, gabapentin, tramadol Hypertension - continue losartan and diuretics as needed Bipedal edema with erythema of the bottom of the feet check venous US to r/o DVT. PCP has recently changed diuretics. Will need further outpatient workup ALS with Paraplegia - has neurologist in [place] chronic pain and muscle spasms. continue elavil, tramadol, gabapentin WC bound. Anticipate d/c tomorrow or once echo available. Current Medications Medications (Trade) Dose Ordered Sig/Vineet Route PRN Reason Start Time Stop Time Status Last Admin Dose Admin Al Hydrox/Mg Hydrox/Simethicone (Mylanta) 30 ml DAILY PRN PO DYSPEPSIA 04/03/19 22:45 Amitriptyline HCl (Elavil) 50 mg QHS PO 04/04/19 21:00 Aspirin (Ecotrin) 81 mg DAILY PO 04/04/19 09:00 04/04/19 08:30 Atorvastatin Calcium (Lipitor) 40 mg QHS PO 04/04/19 21:00 Chlorthalidone (Hygroton) 25 mg DAILY PO 04/04/19 09:00 04/04/19 08:31 Dextrose (Dextrose 50%) 25 ml ASDIRECTED PRN IV SEE LABEL COMMENTS 04/03/19 22:45 Docusate Sodium (Colace) 100 mg BID PO 04/03/19 21:00 04/04/19 08:30 Enoxaparin Sodium (Lovenox) 40 mg DAILY SC 04/04/19 09:00 04/04/19 08:30 Gabapentin (Neurontin) 300 mg QPM@1700 PO 04/04/19 17:00 Gabapentin (Neurontin) 600 mg BID@0830,2100 PO 04/04/19 08:30 04/04/19 08:31 Glipizide (Glucotrol Xl) 5 mg DAILY PO 04/04/19 09:00 04/04/19 08:30 Glucagon (Glucagon) 1 mg ASDIRECTED PRN SC SEE LABEL COMMENTS 04/03/19 22:45 Glucose (Glucose) 16 GM ASDIRECTED PRN PO SEE LABEL COMMENTS 04/03/19 22:45 Home Med (Med Rec Complete!) ASDIRECTED XX 04/03/19 23:00 04/03/19 23:00 DC Insulin Human Lispro (HumaLOG INSULIN) See Protocol Table AC SC 04/04/19 07:30 04/04/19 08:30 Insulin Human Lispro (HumaLOG INSULIN) See Protocol Table QHS SC 04/03/19 21:00 Labetalol HCl (Normodyne, Trandate) 10 mg STAT STAT IV 04/03/19 21:56 04/03/19 21:57 DC 04/03/19 22:26 Losartan Potassium (Cozaar) 50 mg QHS PO 04/03/19 22:45 Magnesium Hydroxide (Milk Of Magnesia) 30 ml DAILY PRN PO CONSTIPATION 04/03/19 22:45 Magnesium Oxide (Mag-Ox) 400 mg DAILY PO 04/04/19 09:00 04/04/19 08:30 Omeprazole (PriLOSEC) 20 mg DAILY PO 04/04/19 09:00 04/04/19 08:30 Tramadol HCl (Ultram) 50 mg BID@0830,1700 PO 04/04/19 08:30 04/04/19 08:32 Tramadol HCl (Ultram) 50 mg DAILY@1200 PRN PO PAIN 04/03/19 23:15 Tramadol HCl (Ultram) 100 mg QHS PO 04/03/19 23:15 04/04/19 02:32 VS,Fishbone, I+O VS, Fishbone, I+O Laboratory Tests 04/03/19 20:55 Red Blood Count 4.36, Mean Corpuscular Volume 90.1, Mean Corpuscular Hemoglobin 29.6, Mean Corpuscular Hemoglobin Concent 32.8, Red Cell Distribution Width 14.0, Neutrophils (%) (Auto) 58.7, Lymphocytes (%) (Auto) 30.7, Monocytes (%) (Auto) 7.6 H, Eosinophils (%) (Auto) 2.0, Basophils (%) (Auto) 0.6, Neutrophils # (Auto) 4.7, Lymphocytes # (Auto) 2.5, Monocytes # (Auto) 0.6, Eosinophils # (Auto) 0.2, Basophils # (Auto) 0.1, Calcium Level 9.1, Total Creatine Kinase 130 04/04/19 05:33 Red Blood Count 3.90 L, Mean Corpuscular Volume 90.0, Mean Corpuscular Hemoglobin 29.5, Mean Corpuscular Hemoglobin Concent 32.8, Red Cell Distribution Width 14.1, Neutrophils (%) (Auto) 48.5, Lymphocytes (%) (Auto) 41.1, Monocytes (%) (Auto) 7.6 H, Eosinophils (%) (Auto) 1.9, Basophils (%) (Auto) 0.6, Neutrophils # (Auto) 3.9, Lymphocytes # (Auto) 3.3, Monocytes # (Auto) 0.6, Eosinophils # (Auto) 0.2, Basophils # (Auto) 0.1, Calcium Level 8.6 L Vital Signs Date Time Temp Pulse Resp B/P (MAP) Pulse Ox O2 Delivery O2 Flow Rate FiO2 04/04/19 08:32 18 04/04/19 06:00 97.0 88 121/63 (82) 94 04/03/19 19:30 Room Air I&O- Last 24 Hours up to 6 AM 04/04/19 06:00 Intake Total 300 ml Output Total 50 ml Balance 250 ml PANTERA COY DO Apr 04, 2019 10:34
--- NOTE | 2019-04-04 11:08 | CR ---
DATE: 04/04/2019 CHIEF COMPLAINT: Transient vision loss in the right eye. HISTORY OF PRESENT ILLNESS: This is a 68-year-old female who noted sudden loss of her superior visual field in the right eye approximately 3 hours prior to presentation to the emergency department. She notes that at that time there was no eye pain, no headache, no flashing lights or floaters. The patient states that over the next several hours she described the vision loss in the right superior visual field as "just being sort of dark to hazy". Over the next three hours, this gradually improved and she describes it as a lifting of the dark hazy curtain that was in the visual field. She presented to the emergency department at that time. The patient was seen in the emergency department with her family at the bedside. The patient is in no acute distress and denies any pain or new losses of vision since the initial episode. She feels the vision has returned back to "normal". PAST MEDICAL HISTORY: Hypertension and diabetes, both medication controlled. She also was diagnosed with amyotrophic lateral sclerosis (ALS) in 2007 and uses a wheelchair. PAST SURGICAL HISTORY: Please see chart. PAST OCULAR HISTORY: The patient states that she had laser vision correction many years ago. Denies any other forms of eye surgery. Uses mostly just reading glasses. REVIEW OF SYSTEMS: Otherwise negative except for her description of the visual field changes in the right eye. EXAMINATION: Visual acuity without glasses approximately 20/30 in the right and 20/30 in the left eye. Pupils were dilated pharmacologically upon my examination. Extraocular muscles were intact OU. Confrontation visual vasquez were full to count fingers in all four quadrants. Indirect elimination exam with headlight and 20 diopter lens shows a white and quiet eye with a mild nuclear sclerotic cataract, a normal pigmented iris, no corneal abrasion, no corneal infiltrates. Dilated exam of the right eye showed a cup to disc ratio of 0.3, sharp, pink and flat. In the left eye, 0.3, sharp, pink and flat. Macular exam in the right eye noted for some inferior perimacular retinal whitening and in the left eye within normal limits. The peripheral exam in the right eye was within normal limits with no tears, breaks or holes and in the left eye, intact with no tears, breaks or holes. Blood vessel exam of the right eye shows a Hollenhorst plaque lodged in the first 1/3 of the inferior arcade and in the left eye within normal limits. The patient had neuroimaging and had a CT which was negative for acute stroke. ASSESSMENT AND PLAN: 1. Transient vision loss likely secondary to a branch retinal artery occlusion in the presence of a Hollenhorst plaque. 2. Nuclear sclerotic cataract. 3. History of laser vision corrective surgery. Given that the patient's visual acuity has returned to essentially normal at this point there is no eye specific treatments indicated. The patient should undergo a full workout to rule out carotid artery plaque formation as well as have echocardiogram and potentially a transesophageal echocardiogram to rule out calcific or cholesterol plaque sources. I would strongly consider anticoagulation beyond 81mg ASA given the diagnosis as a harbinger to cerebral stroke in the future. I will plan to see the patient in followup in approximately two to three weeks. If there are any changes, please do not hesitate to contact my office. STEPHAN
[2019-04-04] MEDS ORDERED: ASPIRIN 325 MG TAB PO ONE (11:15)
[2019-04-04] MEDS ORDERED: GABAPENTIN 300 MG CAP PO SCH (17:00)
--- NOTE | 2019-04-04 17:07 | REP ---
Clinical: Bilateral lower extremity swelling . Technique: Carrion scale and color Doppler evaluation using linear high frequency transducer. Findings: Ultrasound examination of the right and left lower extremity deep venous structures from the common femoral vein to the popliteal vein demonstrates normal compressibility flow and wave patterns in response to respiration and augmentation. There is no evidence for deep venous thrombosis. Impression: No evidence for deep venous thrombosis. Electronically Signed by Cachorro Jiang MD 04/04/2019 04:58 P
[2019-04-04] MEDS: CETACAINE SPRAY 5GM As Ordered ONE ×2 (17:39→18:25)
[2019-04-04] MEDS ORDERED: ONDANSETRON 4MG/2ML VIAL (J2405) As Ordered ONE (17:39)
[2019-04-04] MEDS ORDERED: dexameTHASONE 4 MG/ML 1ML VIAL (J1100) As Ordered ONE (17:39)
[2019-04-04] MEDS ORDERED: MIDAZOLAM INJ 2 MG/2 ML VIAL (J2250) As Ordered ONE ×2 (17:39→18:18)
[2019-04-04] MEDS ORDERED: fentaNYL 100 MCG/2 ML INJECTION (J3010) As Ordered ONE ×2 (17:39→18:18)
[2019-04-04] MEDS ORDERED: LIDOCAINE VISCOUS 2% SOLN 15ML UDC As Ordered ONE (17:40)
[2019-04-04] MEDS ORDERED: LR 1,000 ML IV SCH (19:00)
[2019-04-04] MEDS ORDERED: fentaNYL 100 MCG/2 ML INJECTION (J3010) IV PRN (19:00)
[2019-04-04] MEDS ORDERED: ONDANSETRON 4MG/2ML VIAL (J2405) IV PRN (19:00)
--- NOTE | 2019-04-04 19:53 | T-ECHO ---
DATE OF PROCEDURE: 04/04/2019 REFERRING PHYSICIAN: Shalini Youssef DO PREPROCEDURE DIAGNOSIS: Transient cerebral ischemia, unspecified. POSTPROCEDURE DIAGNOSES: Transient cerebral ischemia, unspecified. Thoracic aorta atherosclerosis. PRINCIPLE FINDINGS: Mostly mild atherosclerosis in the distal aortic arch and descending thoracic aorta with patches of moderate atheroma, but normal bulb components. Mild aortic valve sclerosis of a three-cuspid aortic valve without regurgitation. PROCEDURE: Transesophageal echocardiogram with bubble study. SURGEON: Venkat Charles MD WATER CHEMIST: None. SEDATION: Versed IV administered by the MISSION MANAGER and anesthesiologist. COMPLICATIONS: None. PROCEDURE DESCRIPTION: Patient received viscous lidocaine to gargle. She received versed IV for IV sedation administered by the MISSION MANAGER. Rhythm was sinus. Esophageal intubation was accomplished without difficulty using a Bc's 3D transesophageal echocardiogram probe which was performed by Dr. Charles. The left and right ventricles were normal in size and systolic function. No regional wall motion abnormalities of the left ventricle. Left ventricle ejection fraction was 65% by visual estimate. The interatrial septum was intact anatomically and by color flow Doppler. A single bubble study was performed using 8 mL of normal saline, 1 mL of the patient's own blood and 1 mL of air which was then syringed back and forth between two 10 mL syringes across a three-way stopcock. No bubbles were seen going from the right side of the heart to the left side of the heart with Valsalva maneuver release or with coughing. This was a negative bubble study for intracardiac shunting. No interatrial septal aneurysm. No masses or thrombi were seen within atria or their appendages. Pulmonary vein connections to the left atrium were anatomically normal. Pulse wave Doppler of the left upper pulmonary vein showed normal flow pattern. No pericardial effusion. Aortic valve was three-cuspid and displayed mild focal thickening and focal cusp wave deposits. No aortic regurgitation. Mitral leaflets were structurally and functionally normal. Very mild mitral regurgitation was present and within physiological limits. Very mild pulmonic regurgitation was present and within physiological limits. Pulmonic valve and tricuspid valves were normal. Very mild tricuspid valve regurgitation was present and within normal limits. Distal aortic arch and descending thoracic aorta showed mostly mild atherosclerosis with some patchy areas of moderate atheroma without mobile components. Patient tolerated the procedure well without any immediate complications. CONCLUSIONS: 1. Negative bubble study for detection of intracardiac shunting. No atrial septal defect or ventricular septal defect. No interatrial septal aneurysm. 2. Mostly mild atherosclerosis involving the distal aortic arch and descending thoracic aorta with patchy areas of moderate atheroma without mobile components. 3. Normal left and right ventricle systolic function and wall motion. Left ventricular ejection fraction (LVEF) of 65% by visual estimate. 4. Mild aortic valve sclerosis of a three-cuspid aortic valve. No aortic regurgitation.
[2019-04-04] MEDS ORDERED: AMITRIPTYLINE 50 MG TAB PO SCH (21:00)
[2019-04-04] MEDS ORDERED: ATORVASTATIN 20 MG TAB PO SCH (21:00)
--- NOTE | 2019-04-04 22:11 | ECGEPIP ---
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
[2019-04-05 06:00] VITALS: BP 118/75
[2019-04-05 06:51] LABS: BASO % 0.1 % (0.0-1.0); HEMATOCRIT 36.1 % (36.0-47.0); HEMOGLOBIN 11.9 g/dl (12.0-15.5); MEAN CORPUSCULAR HEMOGLOBIN 29.4 pg (27.0-33.0); MEAN CORPUSCULAR VOLUME 89.1 fl (80.0-96.0); MONO # 0.2 10^3/uL (0.0-0.8); MONO % 3.3 % (0.0-5.0); NEUTROPHILS # 6.1 10^3/uL (1.8-7.7); NEUTROPHILS % 83.1 % (36.0-66.0); PLATELET COUNT, AUTOMATED 248 10^3/uL (150-450); RED BLOOD COUNT 4.05 10^6/uL (4.00-5.40); WHITE BLOOD COUNT 7.4 10^3/uL (4.0-10.0)
[2019-04-05 07:09] LABS: BLOOD UREA NITROGEN 16 MG/DL (7-18); CALCIUM LEVEL 8.8 MG/DL (8.8-10.2); CARBON DIOXIDE LEVEL 30 MEQ/L (21-32); CHLORIDE LEVEL 103 MEQ/L (98-107); CREATININE FOR GFR 0.77 MG/DL (0.55-1.30); GLOMERULAR FILTRATION RATE > 60.0 (>39); GLUCOSE, FASTING 226 MG/DL (70-100); POTASSIUM SERUM 4.1 MEQ/L (3.5-5.1); SODIUM LEVEL 138 MEQ/L (136-145)
[2019-04-05] MEDS: HumaLOG INSULIN (NovoLOG) PER UNIT SC SCH (08:46)
[2019-04-05] MEDS: GABAPENTIN 300 MG CAP PO SCH (08:46)
[2019-04-05] MEDS: MAGNESIUM OXIDE 400 MG TAB (MAG-OX) PO SCH (08:47)
[2019-04-05] MEDS: DOCUSATE SODIUM 100 MG CAP PO SCH (08:47)
[2019-04-05] MEDS: OMEPRAZOLE 20 MG CAP PO SCH (08:47)
[2019-04-05] MEDS: traMADol 50 MG TAB PO SCH (08:48)
[2019-04-05] MEDS: ENOXAPARIN 40 MG/0.4 ML SYRINGE (J1650) SC SCH (08:48)
[2019-04-05] MEDS ORDERED: ASPIRIN 325 MG TAB PO SCH (09:00)
[2019-04-05] MEDS ORDERED: ATOR1TAB21 PO (09:23)
[2019-04-05] MEDS ORDERED: ASPI-1 PO (09:23)
[2019-04-05 10:00] VITALS: BP 140/73
[2019-04-05] MEDS: glipiZIDE XL 5 MG TABCR PO SCH (10:09)
[2019-04-05] MEDS: CHLORTHALIDONE 25 MG TAB PO SCH (10:09)
--- NOTE | 2019-04-05 18:18 | DS.PDOC ---
Discharge Summary General Date of Admission Apr 03, 2019 at 22:38 Date of Discharge 04/05/19 Primary Care Physician: Yennifer Helms Attending Physician: PANTREA COY DO Specialist/Consultants Involve: EMILY HO DO Discharge Summary PROCEDURES PERFORMED DURING STAY: none ADMITTING DIAGNOSES: Right retinal artery occlusion TIA/Stroke - Probably Embolic in nature in the left inferior retinal artery distribution area in the presence of Holenhorst plaque Diabetes with neuropathy - Essential Hypertension ALS with Paraplegia DISCHARGE DIAGNOSES: Right retinal artery occlusion TIA/Stroke - Probably Embolic in nature in the left inferior retinal artery distribution area in the presence of Holenhorst plaque Diabetes with neuropathy - Essential Hypertension ALS with Paraplegia COMPLICATIONS/CHIEF COMPLAINT: Retinal Artery Branch Occlusion Of Right Eye. HISTORY OF PRESENT ILLNESS: 68 year old female with PMH of ALS since 2014 wheel chair bound, diabetes, hypertension, Neuropathy, chronic pain and muscle spasms from ALS and neuropathy, restless legs present to the ED with sudden loss of vision in the left eye. Sudden onset of could not see in the upper part of the left visual field and white curtain came down covering left eye the upper part of the visual field. lasted about 4.5 hours then improved. See H&P for details HOSPITAL COURSE: patient admitted. her vision symptoms completely resolved. Work up included negative MRI/MRA brain, negative carotid US and negative cardiac echo bubble study. She was started on lipitor 40mg daily (states in past simvastatin caused leg cramps) and ASA 325mg daily. She was advised if statin caused leg cramps, have be evaluated by PCP for CPK and trial of lower dose given the plaque burden seen on MRI, Echo, etc. She is being discharge in stable condition. DISCHARGE MEDICATIONS: Please see below. ALLERGIES: Please see below. PHYSICAL EXAMINATION ON DISCHARGE: VITAL SIGNS: Please see below. General: pleasant NAD HRRR soft EDY LCTA no W/R/R LABORATORY DATA: Please see below. IMAGING: CARDIAC ECHO CONCLUSIONS: 1. Negative bubble study for detection of intracardiac shunting. No atrial septal defect or ventricular septal defect. No interatrial septal aneurysm. 2. Mostly mild atherosclerosis involving the distal aortic arch and descending thoracic aorta with patchy areas of moderate atheroma without mobile components. 3. Normal left and right ventricle systolic function and wall motion. Left ventricular ejection fraction (LVEF) of 65% by visual estimate. 4. Mild aortic valve sclerosis of a three-cuspid aortic valve. No aortic regurgitation. MRI BRAIN - no acute infarct MRA brain/Neck: FINDINGS: Right internal carotid artery: Unremarkable. Intracranial segment is patent with no significant stenosis. No aneurysm. Right anterior cerebral artery: Unremarkable. No occlusion or significant stenosis. No aneurysm. Right middle cerebral artery: Unremarkable. No occlusion or significant stenosis. No aneurysm. Right posterior cerebral artery: Unremarkable. No occlusion or significant stenosis. No aneurysm. Right vertebral artery: Right vertebral artery is hypoplastic. Left internal carotid artery: Unremarkable. Intracranial segment is patent with no significant stenosis. No aneurysm. Left anterior cerebral artery: Unremarkable. No occlusion or significant stenosis. No aneurysm. Left middle cerebral artery: Unremarkable. No occlusion or significant stenosis. No aneurysm. Left posterior cerebral artery: Unremarkable. No occlusion or significant stenosis. No aneurysm. Left vertebral artery: Unremarkable. No occlusion or significant stenosis. No aneurysm. Basilar artery: Unremarkable. No occlusion or significant stenosis. No aneurysm. IMPRESSION: No large vessel arterial occlusion. US LEGS:Impression: No evidence for deep venous thrombosis. Carotid US: IMPRESSION: 1. No carotid artery stenosis. 2. Left vertebral artery is not seen. PROGNOSIS: GOOD ACTIVITY: as tolerated DIET: as tolerated DISCHARGE PLAN: discharge home DISCHARGE INSTRUCTIONS: 1. increase aspirin to 325mg daily and start lipitor 40mg daily 2. follow up with neurology - Dr Terrazas at [facility] in 5-7 days 3. follow up with Dr Helms in 1-2 weeks 4. follow up with Dr Ho (opthomology) in 2-3 weeks 5. If vision field deficit reoccurs - go immediately to the ED for stroke eval. DISCHARGE CONDITION: stable TIME SPENT ON DISCHARGE: 35 minutes Vital Signs/I&Os Vital Signs Date Time Temp Pulse Resp B/P (MAP) Pulse Ox O2 Delivery O2 Flow Rate FiO2 04/05/19 08:48 16 04/05/19 06:00 96.5 86 118/75 (89) 94 04/03/19 19:30 Room Air I&O- Last 24 Hours up to 6 AM 04/05/19 06:00 Intake Total 1110 ml Output Total 1600 ml Balance -490 ml Laboratory Data Labs 24H Laboratory Tests 2 04/04/19 11:13: Bedside Glucose (Misc Panel) 136H 04/04/19 19:26: Bedside Glucose (Misc Panel) 117H 04/04/19 21:08: Bedside Glucose (Misc Panel) 212H 04/05/19 05:59: Immature Granulocyte % (Auto) 0.5, White Blood Count 7.4, Red Blood Count 4.05, Hemoglobin 11.9L, Hematocrit 36.1, Mean Corpuscular Volume 89.1, Mean Corpuscular Hemoglobin 29.4, Mean Corpuscular Hemoglobin Concent 33.0, Red Cell Distribution Width 13.6, Platelet Count 248, Neutrophils (%) (Auto) 83.1H, Lymphocytes (%) (Auto) 13.0L, Monocytes (%) (Auto) 3.3, Eosinophils (%) (Auto) 0.0, Basophils (%) (Auto) 0.1, Neutrophils # (Auto) 6.1, Lymphocytes # (Auto) 1.0L, Monocytes # (Auto) 0.2, Eosinophils # (Auto) 0.0, Basophils # (Auto) 0.0, Nucleated Red Blood Cells % (auto) 0.0, Anion Gap 5L, Glomerular Filtration Rate > 60.0, Blood Urea Nitrogen 16, Creatinine 0.77, Sodium Level 138, Potassium Level 4.1, Chloride Level 103, Carbon Dioxide Level 30, Calcium Level 8.8 CBC/BMP Laboratory Tests 04/05/19 05:59 Red Blood Count 4.05, Mean Corpuscular Volume 89.1, Mean Corpuscular Hemoglobin 29.4, Mean Corpuscular Hemoglobin Concent 33.0, Red Cell Distribution Width 13.6, Neutrophils (%) (Auto) 83.1 H, Lymphocytes (%) (Auto) 13.0 L, Monocytes (% ) (Auto) 3.3, Eosinophils (%) (Auto) 0.0, Basophils (%) (Auto) 0.1, Neutrophils # (Auto) 6.1, Lymphocytes # (Auto) 1.0 L, Monocytes # (Auto) 0.2, Eosinophils # (Auto) 0.0, Basophils # (Auto) 0.0, Calcium Level 8.8 FSBS Laboratory Tests Test 04/04/19 11:13 04/04/19 19:26 04/04/19 21:08 Range/Units Bedside Glucose (Misc Panel) 136 117 212 83-110 MG/DL Discharge Medications Scheduled Amitriptyline HCl (Amitriptyline HCl) 50 Mg Tablet, 50 MG PO QHS, (Reported) Aspirin (Aspirin) 325 Mg Tablet, 325 MG PO DAILY Atorvastatin Calcium (Atorvastatin Calcium) 20 Mg Tablet, 40 MG PO QHS Calcium Carbonate/Vitamin D3 (Calcium 600-Vit D3 200 Tablet) 1 Tab Tab, 1 TAB PO BID, (Reported) Chlorthalidone (Chlorthalidone) 25 Mg Tablet, 25 MG PO DAILY, (Reported) NEW RX, HAS NOT STARTED. WILL REPLACE HCTZ. Cholecalciferol (Vitamin D3) (Vitamin D3) 2,000 Unit Tab, 2,000 UNIT PO DAILY, (Reported) Cyanocobalamin (Vitamin B-12) (Vitamin B12) 5,000 Mcg Tab.rapdis, 5,000 MCG PO QHS, (Reported) Denosumab Injection (Prolia) 60 Mg/Ml Vijaya, 60 MG SC ASDIRECTED, (Reported) Gabapentin (Gabapentin) 300 Mg Cap, 300 MG PO QPM, (Reported) TAKES AT 1700 Gabapentin (Gabapentin) 300 Mg Capsule, 600 MG PO BID, (Reported) TAKES AT 0830 AND 2100 Glipizide (Glipizide ER) 5 Mg Tab.er.24, 5 MG PO DAILY, (Reported) Losartan Potassium (Losartan Potassium) 50 Mg Tab, 50 MG PO QHS, (Reported) Magnesium Oxide (Magnesium Oxide) 400 Mg Tablet, 400 MG PO DAILY, (Reported) Metformin HCl (Metformin HCl ER) 500 Mg Tab.er.24h, 500 MG PO BID, (Reported) TAKES AT 0830 AND 1700 Naproxen Sodium (Naproxen Sodium ER) 500 Mg Tab, 500 MG PO BID, (Reported) TAKES AT 0830 AND 1700 Omeprazole (Omeprazole) 20 Mg Cap, 20 MG PO DAILY, (Reported) Potassium Gluconate (Potassium Gluconate) 90 Mg Tablet, 99 MG PO DAILY, (Reported) Tramadol HCl (Tramadol HCl) 50 Mg Tablet, 50 MG PO BID, (Reported) TAKES AT 0830 AND 1700 Tramadol HCl (Tramadol Hydrochloride) 50 Mg Tablet, 100 MG PO QHS, (Reported) Scheduled PRN Docusate Sodium (Stool Softener) 100 Mg Cap, 100 MG PO QPM PRN for CONSTIPATION, (Reported) Tramadol HCl (Tramadol HCl) 50 Mg Tablet, 50 MG PO DAILY PRN for PAIN, (Reported) TAKES PRN AT 1200 Allergies Coded Allergies: codeine (Verified Allergy, Unknown, 8/1/19) PANTERA COY DO Apr 05, 2019 09:26
== END 2019-04-05 12:10 | disposition home or self-care (01) | DRG 65 ==
LOC: M ED 18:18 → M ED INP 22:38 → M MSPAV 04-04 01:54
PROVIDERS: ADMIT Internal Medicine Nephrology; ATTEND Family Medicine
PROC: B246ZZ4 Ultrasonography of Right and Left Heart, Transesophageal (ICD-10-PCS; principal; 2019-04-04 17:00)
DX: I63.49 Cerebral infarction due to embolism of other cerebral artery (principal); G12.21 Amyotrophic lateral sclerosis; H34.232 Retinal artery branch occlusion, left eye; G82.20 Paraplegia, unspecified; E11.51 Type 2 diabetes mellitus with diabetic peripheral angiopathy without gangrene; H26.9 Unspecified cataract; E11.40 Type 2 diabetes mellitus with diabetic neuropathy, unspecified; R60.0 Localized edema; I10 Essential (primary) hypertension; G89.29 Other chronic pain; G25.81 Restless legs syndrome; Z99.3 Dependence on wheelchair; Z79.84 Long term (current) use of oral hypoglycemic drugs; Z79.1 Long term (current) use of non-steroidal anti-inflammatories (NSAID); Z79.891 Long term (current) use of opiate analgesic; Z79.899 Other long term (current) drug therapy; Z88.5 Allergy status to narcotic agent; I70.0 Atherosclerosis of aorta

== ENCOUNTER → 2020-07-20 | Outpatient (CLI) | payer MEDICARE, BC, OTHER ==
[~2020-07-20] MED LIST changes: +AMIT50TA PO; +ATOR1TAB21 PO; +CHLO25TA PO; +GLIP5TAB20 PO; +HM V5000 PO; +HYDR25TAB PO; +MAGN400T2 PO; +METF-838 PO; +OMEP1CAP73 PO; -OMEP20CA4 PO; -OMEP40CA2 PO; +OMEP40CA97 PO; +POTA2.5T PO; +TRAM-533 PO
--- NOTE | 2020-07-20 09:59 | REP ---
INDICATION: LEFT LEG EDEMA COMPARISON: None. TECHNIQUE: Carrion scale and color Doppler evaluation using linear high frequency transducer. FINDINGS: Ultrasound examination of the left lower extremity deep venous structures from the common femoral vein to the popliteal vein demonstrates normal compressibility flow and wave patterns in response to respiration and augmentation. There is no evidence for deep venous thrombosis. 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 IMPRESSION: No evidence for deep venous thrombosis. <Electronically signed by Cachorro Jiang > 07/20/20 0948
== END ==
LOC: M RAD 09:15
PROVIDERS: ATTEND Internal Medicine
DX: R60.0 Localized edema (principal)

== ENCOUNTER → 2020-10-26 | Outpatient (REF) | payer MEDICARE, OTHER ==
[~2020-10-26] MED LIST changes: +GABA-282 PO; -GABA-843 PO; +HYDR-3490 PO; -HYDR25TAB PO
[2020-10-26 18:18] LABS: FERRITIN 27 NG/ML (8-252); IRON (FE) 37 UG/DL (50-170); PERCENT SATURATION 13.4 % (13.2-45.0); TOTAL IRON BINDING CAPACITY 276 UG/DL (250-450)
[2020-10-26 18:38] LABS: VITAMIN B12 LEVEL > 2000 PG/ML
[2020-10-26 18:40] LABS: FOLATE 2.9 NG/ML
== END ==
LOC: M LAB REF 16:23
PROVIDERS: ATTEND Internal Medicine
DX: D64.9 Anemia, unspecified (principal)

== ENCOUNTER 2021-10-03 19:39 | Observation (INO) | payer MEDICARE, OTHER ==
[~2021-10-03] VITALS: Ht 167.6 cm; Wt 85.2 kg
[~2021-10-03 19:39] MED LIST changes: -AMIT10TA PO; +AMIT10TA7 PO; +GABA-283 PO; -GABA-845 PO; +LOSA50TA28 PO; -LOSA50TA88 PO; +OMEP40CA4 PO; -OMEP40CA97 PO
[2021-10-03] MEDS ORDERED: MORPHINE 4 MG/ML 1ML VIAL/SYRINGE (J2270) IV ONE (20:35)
[2021-10-03 21:09] LABS: BASO % 0.5 % (0.0-1.0); EOS # 0.1 10^3/uL (0.0-0.5); EOS % 0.8 % (0.0-3.0); HEMATOCRIT 43.8 % (36.0-47.0); HEMOGLOBIN 14.3 g/dl (12.0-15.5); LYMPH # 1.3 10^3/uL (1.5-5.0); LYMPH % 14.8 % (24.0-44.0); MEAN CORPUSCULAR HEMOGLOBIN 29.2 pg (27.0-33.0); MEAN CORPUSCULAR HGB CONC 32.6 g/dl (32.0-36.5); MEAN CORPUSCULAR VOLUME 89.4 fl (80.0-96.0); MONO # 0.5 10^3/uL (0.0-0.8); MONO % 6.1 % (2.0-8.0); NEUTROPHILS # 6.8 10^3/uL (1.5-8.5); NEUTROPHILS % 77.3 % (36.0-66.0); PLATELET COUNT, AUTOMATED 252 10^3/uL (150-450); WHITE BLOOD COUNT 8.8 10^3/uL (4.0-10.0)
[2021-10-03 21:32] LABS: ALBUMIN 3.9 GM/DL (3.2-5.2); ALT/SGPT 36 U/L (12-78); BILIRUBIN,DIRECT 0.2 MG/DL (0.0-0.2); BILIRUBIN,TOTAL 0.8 MG/DL (0.2-1.0); BLOOD UREA NITROGEN 21 MG/DL (7-18); CALCIUM LEVEL 8.9 MG/DL (8.8-10.2); CARBON DIOXIDE LEVEL 28 MEQ/L (21-32); CHLORIDE LEVEL 104 MEQ/L (98-107); CREATININE FOR GFR 0.63 MG/DL (0.55-1.30); GLOMERULAR FILTRATION RATE > 60.0 (>39); GLUCOSE, FASTING 188 MG/DL (70-100); MAGNESIUM LEVEL 2.5 MG/DL (1.8-2.4); POTASSIUM SERUM 3.9 MEQ/L (3.5-5.1); SODIUM LEVEL 139 MEQ/L (136-145)
[2021-10-03] MEDS ORDERED: PERCOCET 5MG/325MG TAB PO ONE (22:25)
[2021-10-03] MEDS: HYDROMORPHONE HCL 0.5 MG/ 0.5 ML SYRINGE (J1170 PER 1) IV PRN ×2 (23:41→23:51)
[2021-10-04] MEDS ORDERED: HYDROMORPHONE HCL 0.5 MG/ 0.5 ML SYRINGE (J1170 PER 1) IV PRN (00:05)
[2021-10-04] MEDS ORDERED: GLUCAGON INJ 1MG VIAL SC PRN (00:05)
[2021-10-04] MEDS ORDERED: ACETAMINOPHEN TAB 650MG DOSE (2X325MG) PO PRN (00:05)
[2021-10-04] MEDS ORDERED: GLUCOSE 4GM CHEW TABLET PO PRN (00:05)
[2021-10-04] MEDS ORDERED: DEXTROSE 50% 50 ML SYRINGE IV PRN (00:05)
[2021-10-04] MEDS ORDERED: JARD1TAB3 PO (01:49)
[2021-10-04] MEDS ORDERED: GABA-1171 PO (01:49)
[2021-10-04] MEDS ORDERED: SPIR-10 PO (01:49)
[2021-10-04] MEDS ORDERED: OMEP40CA5 PO (01:49)
[2021-10-04] MEDS ORDERED: ROSU5TAB5 PO (01:49)
[2021-10-04] MEDS ORDERED: VITA200012 PO (01:49)
[2021-10-04] MEDS ORDERED: BAYE325T12 PO (01:49)
[2021-10-04] MEDS ORDERED: TRAM50TA2 PO (01:49)
[2021-10-04] MEDS ORDERED: B-121CAP PO (01:49)
[2021-10-04] MEDS ORDERED: GLIP10TA18 PO (01:49)
[2021-10-04] MEDS ORDERED: CALCTAB64 PO (01:49)
[2021-10-04] MEDS ORDERED: GABA800T4 PO (01:49)
[2021-10-04] MEDS ORDERED: JANU100T PO (01:49)
[2021-10-04] MEDS ORDERED: VITA400C50 PO (01:49)
[2021-10-04] MEDS ORDERED: BACL10TA2 PO ×2 (01:49)
[2021-10-04] MEDS ORDERED: NAPR-885 PO (01:49)
[2021-10-04] MEDS ORDERED: HOME MED LIST COMPLETE! XX SCH (01:50)
[2021-10-04] MEDS: DOCUSATE SODIUM 100MG CAPSULE PO SCH ×3 (02:01→20:26)
[2021-10-04] MEDS ORDERED: PILL CUTTER 1 EACH XX PRN (02:25)
[2021-10-04 02:47] VITALS: BP 150/86
[2021-10-04] MEDS: ASPIRIN 325 MG TAB PO SCH ×2 (03:31→20:24)
[2021-10-04] MEDS: AMITRIPTYLINE 50 MG TAB PO SCH ×2 (03:31→20:26)
[2021-10-04] MEDS: LOSARTAN 50MG TABLET PO SCH ×2 (03:32→20:25)
[2021-10-04] MEDS: ROSUVASTATIN 10 MG TAB (CRESTOR) PO SCH ×2 (03:32→20:24)
[2021-10-04] MEDS ORDERED: KETOROLAC 30 MG/ML 1ML VIAL IV PRN ×2 (04:00→04:48)
[2021-10-04] MEDS: HumaLOG INSULIN (NovoLOG) PER UNIT SC SCH ×4 (07:30→21:00)
[2021-10-04] MEDS: MIRALAX *UNIT DOSE* 17GM PACKET PO SCH (08:23)
[2021-10-04] MEDS: BACLOFEN 10 MG TAB PO SCH ×3 (08:23→20:24)
[2021-10-04] MEDS: ENOXAPARIN 40MG/0.4ML SYRINGE (J1650 PER 10MG) SC SCH (08:23)
[2021-10-04] MEDS: SPIRONOLACTONE 25 MG TAB PO SCH (08:23)
[2021-10-04] MEDS: SITagliptin 50 MG TAB (JANUVIA) PO SCH (08:23)
[2021-10-04] MEDS: OMEPRAZOLE 20MG CAP PO SCH (08:24)
[2021-10-04] MEDS: GABAPENTIN 100 MG CAP PO SCH ×3 (08:24→20:24)
[2021-10-04] MEDS: GABAPENTIN 400MG CAP PO SCH ×3 (08:26→20:25)
[2021-10-04] MEDS: traMADol 50 MG TAB PO SCH ×3 (08:26→20:26)
[2021-10-04] MEDS: PERCOCET 5MG/325MG TAB PO PRN ×2 (08:27→14:42)
[2021-10-04] MEDS ORDERED: glipiZIDE XL 5 MG TABCR PO SCH (09:00)
[2021-10-04] MEDS ORDERED: PROHANCE 279.3MG/ML 15ML VIAL As Ordered ONE (12:23)
[2021-10-04] MEDS ORDERED: PROHANCE 279.3MG/ML 5ML VIAL As Ordered ONE (12:23)
[2021-10-04 14:00] VITALS: BP 142/78
[2021-10-05 06:00] VITALS: BP 110/72
[2021-10-05 06:40] LABS: HEMATOCRIT 39.4 % (36.0-47.0); HEMOGLOBIN 12.9 g/dl (12.0-15.5); MEAN CORPUSCULAR HEMOGLOBIN 29.5 pg (27.0-33.0); MEAN CORPUSCULAR HGB CONC 32.7 g/dl (32.0-36.5); MEAN CORPUSCULAR VOLUME 90.2 fl (80.0-96.0); PLATELET COUNT, AUTOMATED 220 10^3/uL (150-450); RED BLOOD COUNT 4.37 10^6/uL (4.00-5.40); WHITE BLOOD COUNT 6.3 10^3/uL (4.0-10.0)
[2021-10-05 07:08] LABS: ALBUMIN 3.2 GM/DL (3.2-5.2); ALT/SGPT 26 U/L (12-78); BILIRUBIN,TOTAL 0.8 MG/DL (0.2-1.0); BLOOD UREA NITROGEN 24 MG/DL (7-18); CALCIUM LEVEL 8.4 MG/DL (8.8-10.2); CARBON DIOXIDE LEVEL 26 MEQ/L (21-32); CHLORIDE LEVEL 108 MEQ/L (98-107); CREATININE FOR GFR 0.68 MG/DL (0.55-1.30); GLOMERULAR FILTRATION RATE > 60.0 (>39); GLUCOSE, FASTING 129 MG/DL (70-100); POTASSIUM SERUM 3.8 MEQ/L (3.5-5.1); SODIUM LEVEL 140 MEQ/L (136-145); TOTAL PROTEIN 6.3 GM/DL (6.4-8.2)
[2021-10-05] MEDS: HumaLOG INSULIN (NovoLOG) PER UNIT SC SCH ×4 (07:30→20:54)
[2021-10-05] MEDS: MIRALAX *UNIT DOSE* 17GM PACKET PO SCH (08:24)
[2021-10-05] MEDS: DOCUSATE SODIUM 100MG CAPSULE PO SCH ×2 (08:25→20:53)
[2021-10-05] MEDS: BACLOFEN 10 MG TAB PO SCH ×3 (08:25→20:53)
[2021-10-05] MEDS: GABAPENTIN 100 MG CAP PO SCH ×3 (08:25→20:52)
[2021-10-05] MEDS: GABAPENTIN 400MG CAP PO SCH ×3 (08:25→20:54)
[2021-10-05] MEDS: OMEPRAZOLE 20MG CAP PO SCH (08:25)
[2021-10-05] MEDS: SPIRONOLACTONE 25 MG TAB PO SCH (08:25)
[2021-10-05] MEDS: SITagliptin 50 MG TAB (JANUVIA) PO SCH (08:25)
[2021-10-05] MEDS: ENOXAPARIN 40MG/0.4ML SYRINGE (J1650 PER 10MG) SC SCH (08:26)
[2021-10-05] MEDS: traMADol 50 MG TAB PO SCH ×3 (08:26→20:53)
[2021-10-05] MEDS: PERCOCET 5MG/325MG TAB PO PRN ×3 (08:28→23:38)
[2021-10-05 14:00] VITALS: BP 133/80
[2021-10-05] MEDS: AMITRIPTYLINE 50 MG TAB PO SCH (20:52)
[2021-10-05] MEDS: ROSUVASTATIN 10 MG TAB (CRESTOR) PO SCH (20:52)
[2021-10-05 20:54] VITALS: BP 143/80
[2021-10-05] MEDS: ASPIRIN 325 MG TAB PO SCH (20:54)
[2021-10-05] MEDS: LOSARTAN 50MG TABLET PO SCH (20:54)
[2021-10-05 21:28] VITALS: BP 143/80
[2021-10-06 04:00] VITALS: BP 140/80
[2021-10-06] MEDS: PERCOCET 5MG/325MG TAB PO PRN (06:15)
[2021-10-06 06:38] LABS: HEMATOCRIT 40.1 % (36.0-47.0); HEMOGLOBIN 12.8 g/dl (12.0-15.5); MEAN CORPUSCULAR HGB CONC 31.9 g/dl (32.0-36.5); MEAN CORPUSCULAR VOLUME 93.9 fl (80.0-96.0); PLATELET COUNT, AUTOMATED 224 10^3/uL (150-450); RED BLOOD COUNT 4.27 10^6/uL (4.00-5.40); WHITE BLOOD COUNT 6.4 10^3/uL (4.0-10.0)
[2021-10-06 07:00] LABS: BLOOD UREA NITROGEN 29 MG/DL (7-18); CALCIUM LEVEL 8.5 MG/DL (8.8-10.2); CARBON DIOXIDE LEVEL 27 MEQ/L (21-32); CHLORIDE LEVEL 108 MEQ/L (98-107); CREATININE FOR GFR 0.65 MG/DL (0.55-1.30); GLOMERULAR FILTRATION RATE > 60.0 (>39); GLUCOSE, FASTING 127 MG/DL (70-100); POTASSIUM SERUM 3.9 MEQ/L (3.5-5.1); SODIUM LEVEL 138 MEQ/L (136-145)
[2021-10-06] MEDS: HumaLOG INSULIN (NovoLOG) PER UNIT SC SCH ×2 (07:30→12:00)
[2021-10-06] MEDS: ENOXAPARIN 40MG/0.4ML SYRINGE (J1650 PER 10MG) SC SCH (08:23)
[2021-10-06] MEDS: MIRALAX *UNIT DOSE* 17GM PACKET PO SCH (08:23)
[2021-10-06] MEDS: GABAPENTIN 400MG CAP PO SCH (08:24)
[2021-10-06] MEDS: SITagliptin 50 MG TAB (JANUVIA) PO SCH (08:24)
[2021-10-06] MEDS: SPIRONOLACTONE 25 MG TAB PO SCH (08:24)
[2021-10-06] MEDS: OMEPRAZOLE 20MG CAP PO SCH (08:24)
[2021-10-06] MEDS: DOCUSATE SODIUM 100MG CAPSULE PO SCH (08:25)
[2021-10-06] MEDS: GABAPENTIN 100 MG CAP PO SCH (08:25)
[2021-10-06] MEDS: BACLOFEN 10 MG TAB PO SCH (08:25)
[2021-10-06] MEDS: traMADol 50 MG TAB PO SCH (09:09)
== END 2021-10-06 12:10 | disposition home health service (06) ==
LOC: M ED 19:39 → M ED INP 19:40 → M MS5PR 10-04 02:26
PROVIDERS: ADMIT Internal Medicine; ATTEND Family Medicine
DX: G89.29 Other chronic pain (principal); M54.50 Low back pain, unspecified; G12.21 Amyotrophic lateral sclerosis; Z99.3 Dependence on wheelchair; E11.9 Type 2 diabetes mellitus without complications; I11.9 Hypertensive heart disease without heart failure; M99.63 Osseous and subluxation stenosis of intervertebral foramina of lumbar region; M48.07 Spinal stenosis, lumbosacral region; M48.061 Spinal stenosis, lumbar region without neurogenic claudication; M62.830 Muscle spasm of back; M62.838 Other muscle spasm; E83.41 Hypermagnesemia; R39.198 Other difficulties with micturition; E78.5 Hyperlipidemia, unspecified; K21.9 Gastro-esophageal reflux disease without esophagitis; M81.0 Age-related osteoporosis without current pathological fracture; Z98.1 Arthrodesis status; Z79.899 Other long term (current) drug therapy; Z79.82 Long term (current) use of aspirin; Z79.1 Long term (current) use of non-steroidal anti-inflammatories (NSAID); Z79.891 Long term (current) use of opiate analgesic; Z88.5 Allergy status to narcotic agent
CPT/HCPCS: 36415; 72072; 72110; 72158; 80048; 80053; 80076; 83735; 85025; 85027; 86140; 87798; 96372; 96374; 96375; 96376; 97110; 97112; 97161; 97167; 97530; 99285; A9576; G0378; J1170; J1650; J1885; J2270

== ENCOUNTER → 2021-11-18 | Outpatient (CLI) | payer MEDICARE, BC, OTHER ==
[~2021-11-18] MED LIST changes: +B-121CAP PO; +BACL10TA2 PO; +BAYE325T12 PO; +CALCTAB64 PO; +GABA-1171 PO; +GABA800T4 PO; +GLIP10TA18 PO; +JANU100T PO; +JARD1TAB3 PO; +NAPR-885 PO; +OMEP40CA5 PO; +PROHANCE 279.3MG/ML 15ML VIAL ONE; +PROHANCE 279.3MG/ML 5ML VIAL ONE; +ROSU5TAB5 PO; +SPIR-10 PO; +VITA200012 PO; +VITA400C50 PO
== END ==
LOC: M PLAIMG 12:30
PROVIDERS: ATTEND Psychiatry & Neurology Neurology
DX: G12.21 Amyotrophic lateral sclerosis (principal)
CPT/HCPCS: 72157; A9576

== ENCOUNTER → 2022-01-02 | Outpatient (CLI) | payer MEDICARE ==
[~2022-01-02] MED LIST changes: -PROHANCE 279.3MG/ML 15ML VIAL ONE; -PROHANCE 279.3MG/ML 5ML VIAL ONE
== END ==
LOC: M PAIN 13:00
PROVIDERS: ATTEND Nurse Practitioner Family
DX: M79.10 Myalgia, unspecified site (principal); G12.21 Amyotrophic lateral sclerosis; Z99.3 Dependence on wheelchair; I10 Essential (primary) hypertension; K21.9 Gastro-esophageal reflux disease without esophagitis; E78.00 Pure hypercholesterolemia, unspecified; G25.81 Restless legs syndrome; E73.9 Lactose intolerance, unspecified; L30.9 Dermatitis, unspecified; M51.26 Other intervertebral disc displacement, lumbar region; E11.9 Type 2 diabetes mellitus without complications; G56.01 Carpal tunnel syndrome, right upper limb; M81.0 Age-related osteoporosis without current pathological fracture; Z79.891 Long term (current) use of opiate analgesic; Z79.82 Long term (current) use of aspirin; Z79.1 Long term (current) use of non-steroidal anti-inflammatories (NSAID); Z79.899 Other long term (current) drug therapy; Z79.84 Long term (current) use of oral hypoglycemic drugs; Z88.5 Allergy status to narcotic agent; J30.2 Other seasonal allergic rhinitis

== ENCOUNTER 2022-04-23 08:30 | Inpatient (IN) | payer MEDICARE, BC, OTHER ==
[2022-04-23] MEDS ORDERED: METF500T13 PO (08:51)
[2022-04-23] MEDS ORDERED: KETOROLAC 30 MG/ML 1ML VIAL IV ONE (09:20)
[2022-04-23 09:45] LABS: BASO # 0.1 10^3/uL (0.0-0.2); BASO % 0.4 % (0.0-1.0); EOS # 0.1 10^3/uL (0.0-0.5); EOS % 1.1 % (0.0-3.0); HEMATOCRIT 41.1 % (36.0-47.0); HEMOGLOBIN 13.2 g/dl (12.0-15.5); LYMPH # 1.8 10^3/uL (1.5-5.0); LYMPH % 14.3 % (24.0-44.0); MEAN CORPUSCULAR HEMOGLOBIN 28.8 pg (27.0-33.0); MEAN CORPUSCULAR HGB CONC 32.1 g/dl (32.0-36.5); MEAN CORPUSCULAR VOLUME 89.7 fl (80.0-96.0); MONO % 8.2 % (2.0-8.0); NEUTROPHILS # 9.4 10^3/uL (1.5-8.5); NEUTROPHILS % 75.7 % (36.0-66.0); PLATELET COUNT, AUTOMATED 285 10^3/uL (150-450); RED BLOOD COUNT 4.58 10^6/uL (4.00-5.40); WHITE BLOOD COUNT 12.4 10^3/uL (4.0-10.0)
[2022-04-23] MEDS: GASTROGRAFIN SOLUTION 30ML PO SCH ×2 (09:50→10:25)
[2022-04-23 10:30] LABS: ALBUMIN 3.3 GM/DL (3.2-5.2); ALT/SGPT 19 U/L (12-78); BILIRUBIN,DIRECT 0.1 MG/DL (0.0-0.2); BILIRUBIN,TOTAL 0.5 MG/DL (0.2-1.0); BLOOD UREA NITROGEN 15 MG/DL (7-18); CALCIUM LEVEL 9.3 MG/DL (8.8-10.2); CARBON DIOXIDE LEVEL 30 MEQ/L (21-32); CHLORIDE LEVEL 99 MEQ/L (98-107); CREATININE FOR GFR 0.56 MG/DL (0.55-1.30); GLOMERULAR FILTRATION RATE > 60.0 (>39); GLUCOSE, FASTING 140 MG/DL (70-100); POTASSIUM SERUM 4.6 MEQ/L (3.5-5.1); SODIUM LEVEL 135 MEQ/L (136-145); TOTAL PROTEIN 7.1 GM/DL (6.4-8.2)
[2022-04-23] MEDS ORDERED: ISOVUE-370 76% 100ML VIAL As Ordered ONE (10:47)
[2022-04-23 11:10] LABS: HYALINE CAST, URINE NONE SEEN /lpf (0-1); RBC, URINE 40-50 /hpf (0-3); SQUAMOUS EPITHELIAL CELL URINE NONE SEEN /hpf (SMALL AMT)
[2022-04-23 11:12] LABS: AMORPHOUS SEDIMENT, URINE SMALL AMOUNT (NEGATIVE); BACTERIA, URINE LARGE AMOUNT; MUCUS, URINE MOD AMOUNT (NEGATIVE)
[2022-04-23 15:44] LABS: RSV AMPLIFICATION NEGATIVE (NEGATIVE)
[2022-04-23] MEDS ORDERED: VITA400T26 PO (16:19)
[2022-04-23] MEDS ORDERED: METF-838 PO (16:19)
[2022-04-23] MEDS ORDERED: DULO60CA35 PO (16:19)
[2022-04-23] MEDS ORDERED: HOME MED LIST COMPLETE! XX SCH (16:20)
[2022-04-23] MEDS ORDERED: NAPROXEN 250 MG TAB PO PRN (16:55)
[2022-04-23] MEDS ORDERED: ACETAMINOPHEN TAB 650MG DOSE (2X325MG) PO PRN (16:55)
[2022-04-23] MEDS ORDERED: FLEET ENEMA PR ONE (18:00)
[2022-04-23] MEDS: NS 1,000 ML IV SCH (18:23)
[2022-04-23] MEDS: cefTRIAXone SOD 1 GM in D5W MINI-BAG PLUS 50 ML IV SCH (20:25)
[2022-04-23] MEDS: MAGNESIUM OXIDE 400MG TAB (MAG-OX) PO SCH (20:27)
[2022-04-23] MEDS: ASPIRIN 325 MG TAB PO SCH (20:27)
[2022-04-23] MEDS: CALCIUM/VITAMIN D 500 MG TAB PO SCH (20:27)
[2022-04-23] MEDS: ROSUVASTATIN 10 MG TAB (CRESTOR) PO SCH (20:28)
[2022-04-23] MEDS: BACLOFEN 10 MG TAB PO SCH (20:28)
[2022-04-23] MEDS: GABAPENTIN 300 MG CAP PO SCH (20:28)
[2022-04-23] MEDS: DULoxetine 30MG CAPSULE (CYMBALTA) PO SCH (20:29)
[2022-04-23] MEDS: LOSARTAN 50MG TABLET PO SCH (20:29)
[2022-04-23] MEDS: SENOKOT S TAB PO SCH (20:29)
[2022-04-23] MEDS ORDERED: CYANOCOBALAMIN 500 MCG TAB PO SCH (21:00)
[2022-04-23] MEDS ORDERED: GABAPENTIN 100 MG CAP PO SCH (21:00)
[2022-04-23] MEDS: VITAMIN E 400 INTERNATIONAL UNITS CAP PO SCH (21:39)
[2022-04-23] MEDS: VITAMIN D 1,000 INTERNATIONAL UNITS TABLET PO SCH (21:39)
[2022-04-23] MEDS: AMITRIPTYLINE 50 MG TAB PO SCH (21:39)
[2022-04-23] MEDS: traMADol 50 MG TAB PO SCH (21:40)
[2022-04-23] MEDS: CYANOCOBALAMIN 500 MCG TAB PO SCH (21:45)
[2022-04-24] MEDS: NS 1,000 ML IV SCH ×2 (04:00→14:00)
[2022-04-24 06:57] LABS: HEMATOCRIT 36.8 % (36.0-47.0); MEAN CORPUSCULAR HEMOGLOBIN 29.2 pg (27.0-33.0); MEAN CORPUSCULAR HGB CONC 32.6 g/dl (32.0-36.5); MEAN CORPUSCULAR VOLUME 89.5 fl (80.0-96.0); PLATELET COUNT, AUTOMATED 263 10^3/uL (150-450); RED BLOOD COUNT 4.11 10^6/uL (4.00-5.40); WHITE BLOOD COUNT 8.9 10^3/uL (4.0-10.0)
[2022-04-24 07:33] LABS: BLOOD UREA NITROGEN 14 MG/DL (7-18); CALCIUM LEVEL 8.7 MG/DL (8.8-10.2); CARBON DIOXIDE LEVEL 30 MEQ/L (21-32); CHLORIDE LEVEL 103 MEQ/L (98-107); CREATININE FOR GFR 0.53 MG/DL (0.55-1.30); GLOMERULAR FILTRATION RATE > 60.0 (>39); GLUCOSE, FASTING 119 MG/DL (70-100); MAGNESIUM LEVEL 2.2 MG/DL (1.8-2.4); SODIUM LEVEL 139 MEQ/L (136-145)
[2022-04-24] MEDS: cefTRIAXone SOD 1 GM in D5W MINI-BAG PLUS 50 ML IV SCH ×2 (08:21→20:10)
[2022-04-24] MEDS: OMEPRAZOLE 20MG CAP PO SCH (08:24)
[2022-04-24] MEDS: SENOKOT S TAB PO SCH ×2 (08:24→20:14)
[2022-04-24] MEDS: ENOXAPARIN 40MG/0.4ML SYRINGE (J1650 PER 10MG) SC SCH (08:24)
[2022-04-24] MEDS: CALCIUM/VITAMIN D 500 MG TAB PO SCH ×2 (08:24→20:14)
[2022-04-24] MEDS: traMADol 50 MG TAB PO SCH ×3 (08:25→20:13)
[2022-04-24] MEDS: GABAPENTIN 300 MG CAP PO SCH ×3 (08:25→20:15)
[2022-04-24] MEDS: BACLOFEN 10 MG TAB PO SCH ×3 (08:26→20:14)
[2022-04-24] MEDS: SPIRONOLACTONE 50 MG TAB PO SCH (08:26)
[2022-04-24 09:55] VITALS: BP 127/71
[2022-04-24] MEDS: INSULIN LISPRO (NovoLOG) PER UNIT SC SCH ×2 (13:16→17:55)
[2022-04-24 14:00] VITALS: BP_SYST 141; BP_SYST 147; BP_DIAS 81; BP_DIAS 85
[2022-04-24] MEDS ORDERED: MIRALAX *UNIT DOSE* 17GM PACKET PO PRN (14:20)
[2022-04-24] MEDS: ASPIRIN 325 MG TAB PO SCH (20:10)
[2022-04-24] MEDS: CYANOCOBALAMIN 500 MCG TAB PO SCH (20:10)
[2022-04-24 20:12] VITALS: BP 147/79
[2022-04-24] MEDS: DULoxetine 30MG CAPSULE (CYMBALTA) PO SCH (20:12)
[2022-04-24] MEDS: VITAMIN D 1,000 INTERNATIONAL UNITS TABLET PO SCH (20:12)
[2022-04-24] MEDS: LOSARTAN 50MG TABLET PO SCH (20:12)
[2022-04-24] MEDS: MAGNESIUM OXIDE 400MG TAB (MAG-OX) PO SCH (20:13)
[2022-04-24] MEDS: AMITRIPTYLINE 50 MG TAB PO SCH (20:14)
[2022-04-24] MEDS: ROSUVASTATIN 10 MG TAB (CRESTOR) PO SCH (20:14)
[2022-04-24] MEDS ORDERED: INSULIN LISPRO (NovoLOG) PER UNIT SC SCH (21:00)
[2022-04-24] MEDS: VITAMIN E 400 INTERNATIONAL UNITS CAP PO SCH (21:02)
[2022-04-24 22:00] VITALS: BP 135/77
[2022-04-25 06:26] VITALS: BP 124/71
[2022-04-25 07:02] LABS: BLOOD UREA NITROGEN 14 MG/DL (7-18); CALCIUM LEVEL 8.8 MG/DL (8.8-10.2); CARBON DIOXIDE LEVEL 28 MEQ/L (21-32); CHLORIDE LEVEL 103 MEQ/L (98-107); CREATININE FOR GFR 0.48 MG/DL (0.55-1.30); GLOMERULAR FILTRATION RATE > 60.0 (>39); GLUCOSE, FASTING 137 MG/DL (70-100); MAGNESIUM LEVEL 2.2 MG/DL (1.8-2.4); PHOSPHORUS LEVEL 3.7 MG/DL (2.5-4.9); POTASSIUM SERUM 3.8 MEQ/L (3.5-5.1); SODIUM LEVEL 137 MEQ/L (136-145)
[2022-04-25] MEDS: cefTRIAXone SOD 1 GM in D5W MINI-BAG PLUS 50 ML IV SCH (07:59)
[2022-04-25] MEDS: BACLOFEN 10 MG TAB PO SCH (08:09)
[2022-04-25] MEDS: OMEPRAZOLE 20MG CAP PO SCH (08:09)
[2022-04-25] MEDS: SPIRONOLACTONE 50 MG TAB PO SCH (08:09)
[2022-04-25] MEDS: SENOKOT S TAB PO SCH (08:10)
[2022-04-25] MEDS: traMADol 50 MG TAB PO SCH (08:10)
[2022-04-25] MEDS: GABAPENTIN 300 MG CAP PO SCH (08:10)
[2022-04-25] MEDS: CALCIUM/VITAMIN D 500 MG TAB PO SCH (08:10)
[2022-04-25] MEDS: ENOXAPARIN 40MG/0.4ML SYRINGE (J1650 PER 10MG) SC SCH (08:11)
[2022-04-25] MEDS: INSULIN LISPRO (NovoLOG) PER UNIT SC SCH (08:11)
[2022-04-25] MEDS ORDERED: SENN-52 PO (10:34)
[2022-04-25] MEDS ORDERED: CEFU50TA PO (10:34)
[2022-04-25] MEDS ORDERED: MIRA1POW3 PO (10:34)
== END 2022-04-25 13:49 | disposition home or self-care (01) | DRG 699 ==
LOC: M ED 08:30 → EDBD 08:30 → M ED INP 16:54 → ENRESERV 04-24 08:31 → M MSPAV 04-24 09:53
PROVIDERS: ADMIT Internal Medicine; ATTEND Internal Medicine
DX: T83.518A Infection and inflammatory reaction due to other urinary catheter, initial encounter (principal); G12.21 Amyotrophic lateral sclerosis; E87.2 Acidosis; G82.20 Paraplegia, unspecified; N30.00 Acute cystitis without hematuria; N39.0 Urinary tract infection, site not specified; E11.9 Type 2 diabetes mellitus without complications; I10 Essential (primary) hypertension; M54.9 Dorsalgia, unspecified; K59.09 Other constipation; D72.829 Elevated white blood cell count, unspecified; L89.159 Pressure ulcer of sacral region, unspecified stage; E86.0 Dehydration; G89.29 Other chronic pain; Z66 Do not resuscitate; Z79.82 Long term (current) use of aspirin; Z99.3 Dependence on wheelchair; Z79.899 Other long term (current) drug therapy; Z79.891 Long term (current) use of opiate analgesic; Z88.5 Allergy status to narcotic agent; Y84.6 Urinary catheterization as the cause of abnormal reaction of the patient, or of later complication, without mention of misadventure at the time of the procedure

== ENCOUNTER → 2022-05-23 | Outpatient (REF) | payer MEDICARE, OTHER ==
[~2022-05-23] MED LIST changes: +CEFU50TA PO; +DULO60CA35 PO; +METF500T13 PO; +MIRA1POW3 PO; +SENN-52 PO; +VITA400T26 PO
[2022-05-23 18:30] LABS: APPEARANCE, URINE MANUAL HAZY (CLEAR); COLOR, URINE MANUAL LT YELLOW (YELLOW)
[2022-05-23 18:33] LABS: BILIRUBIN, URINE MANUAL NEGATIVE (NEGATIVE); BLOOD URINE MANUAL POSITIVE (NEGATIVE); GLUCOSE, URINE (UA) MANUAL 4+(1000 MG/DL) mg/dL (NEGATIVE); KETONE, URINE MANUAL NEGATIVE (NEGATIVE); LEUKOCYTE ESTERASE, URINE MAN POSITIVE (NEGATIVE); NITRITE, URINE MANUAL POSITIVE (NEGATIVE); PH,URINE MAN 6.5 UNITS (5.0 - 7.0); PROTEIN, URINE MANUAL NEGATIVE (NEGATIVE); SPECIFIC GRAVITY,URINE MANUAL 1.015 (1.002-1.035); UROBILINOGEN, URINE MANUAL NORMAL (NORMAL)
[2022-05-23 21:26] LABS: SQUAMOUS EPITHELIAL CELL URINE MOD AMOUNT /hpf (SMALL AMT); WBC, URINE 20-30 /hpf (0-3)
[2022-05-23 21:27] LABS: AMORPHOUS SEDIMENT, URINE SMALL AMOUNT (NEGATIVE); BACTERIA, URINE LARGE AMOUNT; HYALINE CAST, URINE NONE SEEN /lpf (0-1); MUCUS, URINE SMALL AMOUNT (NEGATIVE)
== END ==
LOC: M SHH 17:12
PROVIDERS: ATTEND Registered Nurse
DX: R82.90 Unspecified abnormal findings in urine (principal); N39.0 Urinary tract infection, site not specified

== ENCOUNTER → 2022-07-10 | Outpatient (REF) | payer MEDICARE, OTHER ==
[2022-07-10 12:30] LABS: HEMATOCRIT 38.6 % (36.0-47.0); HEMOGLOBIN 12.5 g/dl (12.0-15.5); MEAN CORPUSCULAR HEMOGLOBIN 29.1 pg (27.0-33.0); MEAN CORPUSCULAR HGB CONC 32.4 g/dl (32.0-36.5); MEAN CORPUSCULAR VOLUME 89.8 fl (80.0-96.0); PLATELET COUNT, AUTOMATED 313 10^3/uL (150-450); WHITE BLOOD COUNT 20.9 10^3/uL (4.0-10.0)
[2022-07-10 13:40] LABS: ALBUMIN 2.7 GM/DL (3.2-5.2); ALT/SGPT 50 U/L (12-78); BLOOD UREA NITROGEN 20 MG/DL (7-18); CALCIUM LEVEL 9.4 MG/DL (8.8-10.2); CARBON DIOXIDE LEVEL 22 MEQ/L (21-32); CHLORIDE LEVEL 96 MEQ/L (98-107); GLOMERULAR FILTRATION RATE > 60.0 (>39); GLUCOSE, FASTING 325 MG/DL (70-100); SODIUM LEVEL 130 MEQ/L (136-145); TOTAL PROTEIN 6.8 GM/DL (6.4-8.2)
[2022-07-10 19:36] LABS: APPEARANCE, URINE MANUAL CLEAR (CLEAR); COLOR, URINE MANUAL YELLOW (YELLOW)
[2022-07-10 19:37] LABS: BILIRUBIN, URINE MANUAL NEGATIVE (NEGATIVE); BLOOD URINE MANUAL POSITIVE (NEGATIVE); GLUCOSE, URINE (UA) MANUAL 4+(1000 MG/DL) mg/dL (NEGATIVE); KETONE, URINE MANUAL 3+ mg/dL (NEGATIVE); LEUKOCYTE ESTERASE, URINE MAN NEGATIVE (NEGATIVE); NITRITE, URINE MANUAL NEGATIVE (NEGATIVE); PH,URINE MAN 5.5 UNITS (5.0 - 7.0); PROTEIN, URINE MANUAL 1+ mg/dL (NEGATIVE); SPECIFIC GRAVITY,URINE MANUAL 1.033 (1.002-1.035); UROBILINOGEN, URINE MANUAL NORMAL (NORMAL)
[2022-07-10 20:15] LABS: AMORPHOUS SEDIMENT, URINE MOD AMOUNT (NEGATIVE); RBC, URINE 15-20 /hpf (0-3); SQUAMOUS EPITHELIAL CELL URINE SMALL AMOUNT /hpf (SMALL AMT); WBC, URINE 0-1 /hpf (0-3)
[2022-07-10 20:16] LABS: BACTERIA, URINE SMALL AMOUNT
== END ==
PROVIDERS: ATTEND Internal Medicine
DX: R41.0 Disorientation, unspecified (principal); R82.998 Other abnormal findings in urine

== ENCOUNTER → 2022-07-11 | Outpatient (REF) | PROVIDERS: ATTEND Internal Medicine | DX: R06.02 Shortness of breath (principal) ==

== ENCOUNTER → 2022-07-11 | Outpatient (REF) | payer MEDICARE, OTHER | PROVIDERS: ATTEND Physician Assistant | DX: R06.02 Shortness of breath (principal) ==

== ENCOUNTER → 2022-12-20 | Outpatient (REF) | payer MEDICARE, BC, OTHER | PROVIDERS: ATTEND Internal Medicine | DX: K31.89 Other diseases of stomach and duodenum (principal); K63.89 Other specified diseases of intestine; M47.9 Spondylosis, unspecified ==

== ENCOUNTER → 2022-12-29 | Outpatient (REF) | payer MEDICARE, BC, OTHER | PROVIDERS: ATTEND Internal Medicine | DX: R05.9 Cough, unspecified (principal) ==

== ENCOUNTER → 2023-06-13 | Outpatient (REF) | payer MEDICARE, BC, OTHER ==
[~2023-06-13] MED LIST changes: -GABA-283 PO; +GABA-284 PO
== END ==
PROVIDERS: ATTEND Physician Assistant
DX: R68.83 Chills (without fever) (principal); R52 Pain, unspecified

== ENCOUNTER → 2023-09-21 | Outpatient (REF) | payer MEDICARE, BC, OTHER | PROVIDERS: ATTEND Physician Assistant | DX: R41.82 Altered mental status, unspecified (principal) ==